=== PATIENT | female | born 1985 | race Caucasian/White ===

== ENCOUNTER 2016-07-16 16:47 | Emergency (ER) | payer BC ==
[2016-07-16 16:53] VITALS: BP 148/100
== END 2016-07-16 18:11 | disposition left against medical advice (07) ==
LOC: ED 16:47
DX: R11.10 Vomiting, unspecified (principal); R19.7 Diarrhea, unspecified; Z53.21 Procedure and treatment not carried out due to patient leaving prior to being seen by health care provider

== ENCOUNTER 2017-01-07 08:04 | Emergency (ER) | payer BC ==
[2017-01-07 08:19] VITALS: BP 104/73
--- NOTE | 2017-01-07 08:46 | UC ---
Dizzy HPI HPI Summary: 2 days of vertigo---did the Eply Maneuver with resolve of vertigo last night-- Today was at work and had on a soft cervical color and got a warm and tingling sensation over body, (felt similar to past panic attack) took off cervical collar laid down and in less than 1 minute she felt better---here now to get checked out - History Of Current Complaint Chief Complaint: UCDizziness Stated Complaint: DIZZY NUMB FEELING IN CHEST/ARMS Time Seen by Provider: 01/07/17 08:19 Hx Obtained From: Patient Hx Last Menstrual Period: 03/08/15 ?: Yes Onset/Duration: Sudden Onset, Resolved Timing: Minutes - breif episode lasted a minute or two Severity Initially: Mild Severity Currently: None Pain Intensity: 0 Character: Room Spinning - for 2 days prior, Lightheaded - this morning episode Aggravating Factor(s): Nothing Alleviating Factor(s): Rest Associated Signs And Symptoms: Positive: Negative - Allergies/Home Medications Allergies/Adverse Reactions: Allergies Allergy/AdvReac Type Severity Reaction Status Date / Time Penicillins [PCN] Allergy Unknown Unknown Verified 07/16/16 16:50 Reaction Details Sulfa Drugs Allergy Unknown Unknown Verified 07/16/16 16:50 Reaction Details Home Medications: Home Medications Docosahexaenoic Acid [Dha Cortez 3] 1 tab PO DAILY 01/07/17 [History Confirmed ] Doxylamine Succinate (Sleep) [Unisom] 1 tab PO BEDTIME 01/07/17 [History Confirmed 01/07/17] PMH/Surg Hx/FS Hx/Imm Hx Previously Healthy: Yes - Surgical History Surgical History: Yes Surgery Procedure, Year, and Place: Tonsilectomy 2013 - Family History Known Family History: Positive: None Family History: denies cardio, respiratory vascular issues in family lineage - Social History Occupation: Employed Full-time - RN Lives: With Family Alcohol Use: None Substance Use Type: None Smoking Status (MU): Never Smoked Tobacco - Immunization History Most Recent Influenza Vaccination: 02/12/15 Most Recent Tetanus Shot: <5 years Review of Systems Constitutional: Negative Skin: Negative Eyes: Negative ENT: Negative Respiratory: Negative Cardiovascular: Negative Gastrointestinal: Negative Genitourinary: Negative Motor: Negative Neurovascular: Negative Musculoskeletal: Negative Neurological: Negative Psychological: Negative All Other Systems Reviewed And Are Negative: Yes Physical Exam Triage Information Reviewed: Yes Appearance: Well-Appearing, No Pain Distress, Well-Nourished Vital Signs: Initial Vital Signs Temp 97.1 F 01/07/17 08:10 Pulse 91 01/07/17 08:10 Resp 16 01/07/17 08:10 BP 104/73 01/07/17 08:10 Pulse Ox 100 01/07/17 08:10 Vital Signs Reviewed: Yes Eye Exam: Normal Eyes: Positive: Conjunctiva Clear, Other: - Perrla, EOMI, no nystagmus, fundascopic exam WNL, ENT Exam: Normal ENT: Positive: Normal ENT inspection, Hearing grossly normal, Pharynx normal, Nasal drainage, TMs normal. Negative: Nasal congestion, Trismus, Muffled/ hoarse voice Dental Exam: Normal Neck exam: Normal Neck: Positive: Supple, Nontender, No Lymphadenopathy Respiratory Exam: Normal Respiratory: Positive: Chest non-tender, Lungs clear, Normal breath sounds, No respiratory distress, No accessory muscle use Cardiovascular Exam: Normal Cardiovascular: Positive: RRR, No Murmur, Pulses Normal, Brisk Capillary Refill Abdomen Description: Positive: Other: - heart tones---140 Musculoskeletal Exam: Normal Musculoskeletal: Positive: Strength Intact, ROM Intact, No Edema Neurological Exam: Normal Neurological: Positive: Alert, Muscle Tone Normal, Other: - gait rhomberg, balence all WNL Psychological Exam: Normal Skin Exam: Normal Diagnostics - Laboratory Diagnostic Studies Completed/Ordered: ua --wnl sg 1.020,,fht 140 - EKG Cardiac Rate: NL Cardiac Rhythm: Sinus: Normal Ectopy: None ST Segment: Normal Dizzy Course/Dx - Course Course Of Treatment: rest increase fluids, follow with trestle mainternance laborer - Differential Dx/Diagnosis Differential Diagnosis/HQI/PQRI: Anxiety, Benign Paroxysmal Positional Vertigo, Hyperventilation, Vasovagal Reaction Provider Diagnoses: Transient vasovagal reaction Discharge - Discharge Plan Condition: Stable Disposition: HOME Patient Education Materials: Vertigo (ED), Syncope (ED) Forms: *Work Release Referrals: Stanislaw Kelley MD [Primary Care Provider] - Additional Instructions: Follow as recommended by your trestle mainternance laborer. Home and Rest today Increase fluids----
== END 2017-01-07 09:05 | disposition home or self-care (01) ==
LOC: UCEAST 08:04
DX: R55 Syncope and collapse (principal); R42 Dizziness and giddiness; Z88.0 Allergy status to penicillin; Z88.2 Allergy status to sulfonamides
CPT/HCPCS: 81003; 93005; 99212; G0463

== ENCOUNTER 2017-02-05 14:39 | Emergency (ER) | payer SELFPAY ==
[2017-02-05 16:17] LABS: Hematocrit 32 % (35-47); Hemoglobin 11.4 g/dl (12.0-16.0); Mean Corpuscular HGB Conc 36 g/dl (31-36); Mean Corpuscular Hemoglobin 32 pg (27-31); Mean Corpuscular Volume 88 fL (80-97); Mean Platelet Volume 8 um3 (7.4-10.4); Red Blood Count 3.63 10^6/ul (4.0-5.4); Red Cell Distribution Width 14 % (10.5-15); White Blood Count 9.3 10^3/ul (3.5-10.8)
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
[2017-02-05 17:05] VITALS: BP 97/63
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
== END 2017-02-05 17:23 | disposition home or self-care (01) ==
LOC: ED 14:39
DX: S39.91XA Unspecified injury of abdomen, initial encounter (principal); R10.30 Lower abdominal pain, unspecified; V43.52XA Car driver injured in collision with other type car in traffic accident, initial encounter; Y93.89 Activity, other specified; Y92.89 Other specified places as the place of occurrence of the external cause
CPT/HCPCS: 36415; 76815; 83030; 85025; 85461; 99282

== ENCOUNTER 2017-03-20 13:49 | Emergency (ER) | payer BC, OTHER ==
--- NOTE | 2017-03-20 14:27 | UC ---
Dizzy HPI HPI Summary: Patient presents with complaints of dizziness, lightheadedness and weakness since 03/13/17. She states that if she moves her head it feels like it is going to just float off. She stats her symptoms are constant, but worse with movement. She also reports nausea. She states she is 25 weeks G1. She is cared for by [facility]. She states she feel very active movement. She denies any f/c/n/v/c/d. Denies any abnormal vaginal discharge or bleeding. She states she has hemorrhoids and has had some rectal bleeding with BM. She states she took meclizine today for the dizziness. She denies any one-sided weakness, headaches or neck pain, injury or trauma. States she was seen by her PCP who told her there was nothing else they could do for her, and spoke to [facility] and they did not offer any additional recommendations or advise. She then went to her chiropractor who adjusted her and she states her symptoms improved for about one hour. - History Of Current Complaint Chief Complaint: UCDizziness Stated Complaint: DIZZINESS/WEAK Time Seen by Provider: 03/20/17 13:58 Hx Obtained From: Patient Hx Last Menstrual Period: 03/08/15 ?: Yes Onset/Duration: Sudden Onset, Lasting Weeks Timing: Hours Severity Initially: Moderate Severity Currently: Moderate Character: Head Spinning, Room Spinning, Lightheaded, Weak, Dizzy Aggravating Factor(s): Change In Head Position Alleviating Factor(s): Lying Down Associated Signs And Symptoms: Positive: Nausea - Risk Factors Cardiac Risk Factors: Negative CVA Risk Factor: Negative - Allergies/Home Medications Allergies/Adverse Reactions: Allergies Allergy/AdvReac Type Severity Reaction Status Date / Time Penicillins [PCN] Allergy Unknown Unknown Verified 02/05/17 15:00 Reaction Details Sulfa Drugs Allergy Unknown Unknown Verified 02/05/17 15:00 Reaction Details Home Medications: Home Medications Meclizine HCl [Meclizine 25] 25 mg PO 03/20/17 [History] Pseudoephedrine-Guaifenesin [Mucinex D 60-600 mg] 1 tab PO 03/20/17 [History] PMH/Surg Hx/FS Hx/Imm Hx Previously Healthy: Yes - Surgical History Surgical History: Yes Surgery Procedure, Year, and Place: Tonsilectomy 2013 - Family History Known Family History: Positive: None Negative: Cardiac Disease, Diabetes Family History: denies cardio, respiratory vascular issues in family lineage - Social History Occupation: Employed Part-time Lives: Alone Alcohol Use: None Substance Use Type: None Smoking Status (MU): Never Smoked Tobacco - Immunization History Most Recent Influenza Vaccination: 02/12/15 Most Recent Tetanus Shot: <5 years Review of Systems Constitutional: Negative Skin: Negative Eyes: Negative ENT: Negative Respiratory: Negative Cardiovascular: Negative Gastrointestinal: Negative Genitourinary: Negative Motor: Negative Neurovascular: Negative Musculoskeletal: Negative Neurological: Other - lightheaded dizziness wekness Psychological: Negative All Other Systems Reviewed And Are Negative: Yes Physical Exam Triage Information Reviewed: Yes Vital Signs: Initial Vital Signs Temp 98.3 F 03/20/17 13:54 Pulse 104 03/20/17 13:54 Resp 18 03/20/17 13:54 BP 125/72 03/20/17 13:54 Pulse Ox 100 03/20/17 13:54 Eye Exam: Normal ENT Exam: Normal Dental Exam: Normal Neck exam: Normal Neck: Positive: 1 Respiratory Exam: Normal Cardiovascular Exam: Normal Abdominal Exam: Normal Musculoskeletal Exam: Normal Neurological Exam: Normal Psychological Exam: Normal Skin Exam: Normal Dizzy Course/Dx - Course Course Of Treatment: Patient was transferred to the ER [facility]. IV was iniated of NS I liter WO. Report was called to [facility]. Patient VS were BP 125/74, P 104, R18, T 98.3, O2 sat 100% at transfer. My concerns of pre- eclampsia, thyroid disease, ms, vertigo were discussed with the patient she was in agreement with the plan. - Differential Dx/Diagnosis Differential Diagnosis/HQI/PQRI: Benign Paroxysmal Positional Vertigo, Other - pre-eclampsia hypo/hyperthyoid ms (undiagnosed) dizziness vertigo Provider Diagnoses: vertigo. ms. hypo/hyperthyroid. pre-eclampsia. dizziness Discharge - Discharge Plan Condition: Stable Disposition: [facility] Patient Education Materials: Dizziness (ED)
[2017-03-20 14:32] VITALS: BP 115/80
[2017-03-20] MEDS ORDERED: NS 0.9% 1000 ML* 1,000 ML IV ONE (14:38)
== END 2017-03-20 14:35 | disposition short-term general hospital (02) ==
LOC: UCEAST 13:49
DX: O14.90 Unspecified pre-eclampsia, unspecified trimester (principal); Z88.0 Allergy status to penicillin; O99.280 Endocrine, nutritional and metabolic diseases complicating pregnancy, unspecified trimester; E03.9 Hypothyroidism, unspecified; E05.90 Thyrotoxicosis, unspecified without thyrotoxic crisis or storm
CPT/HCPCS: 99213; G0463

== ENCOUNTER 2017-03-20 14:55 | Emergency (ER) | payer BC ==
[2017-03-20 15:16] LABS: Hematocrit 35 % (35-47); Hemoglobin 12.2 g/dl (12.0-16.0); Mean Corpuscular HGB Conc 35 g/dl (31-36); Mean Corpuscular Hemoglobin 32 pg (27-31); Mean Corpuscular Volume 90 fL (80-97); Mean Platelet Volume 8 um3 (7.4-10.4); Red Blood Count 3.82 10^6/ul (4.0-5.4); Red Cell Distribution Width 14 % (10.5-15); White Blood Count 10.3 10^3/ul (3.5-10.8)
[2017-03-20 15:32] LABS: Albumin 3.9 g/dL (3.2-5.2); BUN/Creatinine Ratio 20.9 (8-20); Calcium 9.4 mg/dL (8.6-10.3); EGFR African American 218.8 (>60); EGFR Non-African American 170.2 (>60); Magnesium 1.8 mg/dL (1.9-2.7); Total Bilirubin 0.5 mg/dL (0.2-1.0); Total Protein 6.9 g/dL (6.4-8.9)
[2017-03-20 15:33] LABS: Urine Bacteria 1+ (Absent); Urine Bilirubin Negative (Negative); Urine Glucose Negative (Negative); Urine Nitrite Negative (Negative)
[2017-03-20 15:55] LABS: TSH (Thyroid Stimulating Horm) 1.26 mcIU/mL (0.34-5.60)
[2017-03-20 16:21] LABS: Potassium 3.7 mmol/L (3.5-5.0)
[2017-03-20] MEDS ORDERED: NS 0.9% 1000 ML* 1,000 ML IV ONE (16:23)
[2017-03-20] MEDS ORDERED: Meclizine TAB* 12.5 MG PO ONE (16:44)
[2017-03-20 20:54] VITALS: BP 102/82
--- NOTE | 2017-03-21 03:53 | ED ---
Laron Winkler Rebecca, shannaned for Thony Jean-Baptiste on 03/21/17 at 0254 . Progress - Progress Note Progress Note: Pt was signed out from Dr. Blanton, pending disposition, awaiting neurologist consult. Course/Dx - Course Course Of Treatment: Pt was signed out from Dr. Blanton, pending disposition, awaiting neurologist consult. Upon neurologist consultation and evaluation in the ED it has been determined that the pt can be D/C to home. The pts condition is stable and she will be D/C to home with Dx of BPV (benign positional vertigo) with Rx for Zofran and physical therapy and a follow up with her PCP. She understands and agrees. Allergies noted. Elevated BP ntoed and advised to f/u with PCP. - Diagnoses Provider Diagnoses: Benign positional vertigo - Provider Notifications Discussed Care Of Patient With: Lucinda Montez Time Discussed With Above Provider: 22:00 Instructed by Provider To: Other - Upon evaluation in the ED it has been determined that the pt can be D/C to home. The documentation as recorded by the Laron reed Rebecca accurately reflects the service I personally performed and the decisions made by Jerilyn negron Emmanuel.
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
--- NOTE | 2017-03-21 05:13 | CONS ---
ADDENDUM: CONSULTATION REPORT: DATE OF CONSULTATION: MEDICATIONS: Include vitamin p.o. q. day as well as supplements of Probiotic and DHEA p.o. q. day. [id number]/[facility] #: [id number] KYLAH
== END 2017-03-20 20:59 ==
LOC: ED 14:55
DX: O26.892 Other specified pregnancy related conditions, second trimester (principal); H81.10 Benign paroxysmal vertigo, unspecified ear; Z3A.25 25 weeks gestation of pregnancy; Z88.0 Allergy status to penicillin; Z88.2 Allergy status to sulfonamides
CPT/HCPCS: 36415; 80053; 81003; 81015; 83605; 83735; 84443; 84484; 85025; 87086; 93005; 99283

== ENCOUNTER 2017-06-14 12:58 | Emergency (ER) | payer BC ==
[2017-06-14 13:12] VITALS: BP 100/68
--- NOTE | 2017-06-14 14:27 | UC ---
UC General HPI - HPI Summary HPI Summary: 31 yo WF 37week GA c/o left lower rib/pleuritic chest wall pain with deep inspiration felt since last night while sitting in rocking chair. 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 Denies SOB or calf tenderness or recent URI symptoms, f/c. - History of Current Complaint Chief Complaint: UCGeneralIllness Stated Complaint: RIB PAIN Time Seen by Provider: 06/14/17 13:54 Hx Obtained From: Patient Hx Last Menstrual Period: 03/08/15 Onset/Duration: Sudden Onset Onset Severity: Moderate - Allergy/Home Medications Allergies/Adverse Reactions: Allergies Allergy/AdvReac Type Severity Reaction Status Date / Time Penicillins [PCN] Allergy Unknown Unknown Verified 06/14/17 13:12 Reaction Details Sulfa Drugs Allergy Unknown Unknown Verified 06/14/17 13:12 Reaction Details Home Medications: Home Medications Acetaminophen TAB* [Tylenol TAB*] 1,000 mg PO ONCE PRN 06/14/17 [History Confirmed 06/14/17] Diphenhydramine-Acetaminophen [Tylenol Pm Extra Strength 500-25 mg] 1 tab PO BEDTIME PRN 06/14/17 [History Confirmed 06/14/17] PMH/Surg Hx/FS Hx/Imm Hx - Surgical History Surgical History: Yes Surgery Procedure, Year, and Place: Tonsilectomy 2013 - Family History Known Family History: Positive: None Negative: Cardiac Disease, Diabetes, Other - neg: strokes, DVT Family History: denies cardio, respiratory vascular issues in family lineage - Social History Alcohol Use: None Substance Use Type: None Smoking Status (MU): Never Smoked Tobacco - Immunization History Most Recent Influenza Vaccination: 02/12/15 Most Recent Tetanus Shot: <5 years Review of Systems Constitutional: Negative Skin: Negative Eyes: Negative ENT: Negative Respiratory: Negative Cardiovascular: Negative Gastrointestinal: Negative Genitourinary: Negative Motor: Negative Neurovascular: Negative Musculoskeletal: Other: - left lower rib and chestwall pain Neurological: Negative Psychological: Negative All Other Systems Reviewed And Are Negative: Yes - Comments Additional Review of Systems Comments: Pt is 37wks GA Physical Exam Triage Information Reviewed: Yes Appearance: Well-Appearing Vital Signs: Initial Vital Signs Temp 36.5 C 06/14/17 13:07 Pulse 100 06/14/17 13:07 Resp 18 06/14/17 13:07 BP 100/68 06/14/17 13:07 Pulse Ox 99 06/14/17 13:07 Vital Signs Reviewed: Yes Eye Exam: Normal ENT Exam: Normal Dental Exam: Normal Neck exam: Normal Neck: Positive: 1 Respiratory Exam: Normal Respiratory: Positive: Lungs clear, Inspiration - Painful inspiration felt along ICS of left lower rib around rib 7-8 Cardiovascular Exam: Normal Cardiovascular: Positive: RRR Abdominal Exam: Normal Musculoskeletal Exam: Normal Neurological Exam: Normal Psychological Exam: Normal Skin Exam: Normal Course/Dx - Course Course Of Treatment: Left lower pleuritic CP may likely be associated with Gravid 37wk GA Uterus but advised pt to go to ER for to r/o PE. Pt agreed to go to ER from , declined ambulance - Differential Dx - Multi-Symptom Provider Diagnoses: pleuritic chest pain on left lower chest Discharge - Discharge Plan Condition: Stable Disposition: HOME Patient Education Materials: Pleurisy (ED) Referrals: Stanislaw Kelley MD [Primary Care Provider] - Additional Instructions: as as tolerated
== END 2017-06-14 14:30 | disposition home or self-care (01) ==
LOC: UCEAST 12:58
DX: O26.893 Other specified pregnancy related conditions, third trimester (principal); R07.81 Pleurodynia; Z3A.37 37 weeks gestation of pregnancy; Z88.0 Allergy status to penicillin; Z88.2 Allergy status to sulfonamides
CPT/HCPCS: 99211; G0463

== ENCOUNTER 2017-06-14 14:43 | Emergency (ER) | payer BC ==
[2017-06-14 16:32] LABS: ABS Basophils 0.1 10^3/ul (0-0.2); ABS Eosinophils 0.1 10^3/ul (0-0.6); ABS Lymphocytes 1.8 10^3/ul (1.0-4.8); ABS Monocytes 0.7 10^3/ul (0-0.8); ABS Neutrophils 7.5 10^3/ul (1.5-7.7); ABS Nucleated RBC 0.01 10^3/ul; Eosinophil % 0.6 % (0-6); Hematocrit 37 % (35-47); Hemoglobin 12.8 g/dl (12.0-16.0); Lymphocyte % 17.6 % (25-47); Mean Corpuscular HGB Conc 35 g/dl (31-36); Mean Corpuscular Hemoglobin 32 pg (27-31); Mean Corpuscular Volume 93 fL (80-97); Mean Platelet Volume 8 um3 (7.4-10.4); Nucleated Red Blood Cells % 0.1; Platelet Count 205 10^3/ul (150-450); Red Blood Count 3.96 10^6/ul (4.0-5.4); Red Cell Distribution Width 15 % (10.5-15)
[2017-06-14 16:55] LABS: EGFR Non-African American 133.7 (>60)
--- NOTE | 2017-06-14 17:59 | ED ---
Garry Winkler Julia, scribed for Toby Castellano MD on 06/14/17 at 1629 . HPI Chest Pain - HPI Summary HPI Summary: This patient is a 31 year old F presenting to [facility] with a chief complaint of sharp L lower rib pain with inhales since 22:00 last night. The patient rates the pain 6/10 in severity, only with breath. Symptoms aggravated with breathing. Symptoms unchanged by movement or palpation. Patient denies fever, chills, ankle edema, or changes in SOB (related to ). Patient is 37 weeks and reports that the baby is moving normally. - History of Current Complaint Chief Complaint: EDChestWallPain Time Seen by Provider: 06/14/17 15:45 Hx Obtained From: Patient Hx Last Menstrual Period: 03/08/15 Onset/Duration: Started Hours Ago Pain Intensity: 4 Pain Scale Used: 0-10 Numeric Chest Pain Location: Left Lateral - L lower ribs Chest Pain Radiates: No Character: Sharp/Stabbing Aggravating Factor(s): Deep Breaths - Allergy/Home Medications Allergies/Adverse Reactions: Allergies Allergy/AdvReac Type Severity Reaction Status Date / Time Penicillins [PCN] Allergy Unknown Unknown Verified 06/14/17 13:12 Reaction Details Sulfa Drugs Allergy Unknown Unknown Verified 06/14/17 13:12 Reaction Details PMH/Surg Hx/FS Hx/Imm Hx Endocrine/Hematology History: Denies: Hx Diabetes, Hx Thyroid Disease Cardiovascular History: Denies: Hx Hypertension Respiratory History: Denies: Hx Asthma, Hx Chronic Obstructive Pulmonary Disease (COPD) GI History: Denies: Hx Ulcer History: Reports: Other Problems/Disorders - UTI IN PAST NONE RECENTLY Sensory History: Denies: Hx Contacts or Glasses, Hx Hearing Aid Opthamlomology History: Denies: Hx Contacts or Glasses - Surgical History Surgery Procedure, Year, and Place: Tonsilectomy 2014 Hx Anesthesia Reactions: No Infectious Disease History: No Infectious Disease History: Denies: Hx Clostridium Difficile, Hx Hepatitis, Hx Human Immunodeficiency Virus (HIV), Hx of Known/Suspected MRSA, Hx Shingles, Hx Tuberculosis, Hx Known/ Suspected VRE, Hx Known/Suspected VRSA, History Other Infectious Disease, Traveled Outside the US in Last 30 Days - Family History Known Family History: Negative: Cardiac Disease, Diabetes, Other - neg: strokes, DVT Family History: denies cardio, respiratory vascular issues in family lineage - Social History Alcohol Use: None Hx Substance Use: No Substance Use Type: Reports: None Hx Tobacco Use: No Smoking Status (MU): Never Smoked Tobacco Review of Systems Negative: Fever, Chills Positive: Other - L lower rib pain with breaths. Negative: Shortness Of Breath - no recent changes Negative: Edema - ankle All Other Systems Reviewed And Are Negative: Yes Physical Exam - Summary Physical Exam Summary: General: well-appearing, no pain distress Skin: warm, color reflects adequate perfusion, dry Head: normal Eyes: EOMI, MARIELLE ENT: normal Neck: supple, nontender Respiratory: CTA, breath sounds present Cardiovascular: RRR Abdomen: soft, nontender Bowel: present Musculoskeletal: normal, strength/ROM intact, calves nontender Neurological: normal, sensory/motor intact, A&O x3 Psychological: affect/mood appropriate Triage Information Reviewed: Yes Vital Signs On Initial Exam: Initial Vitals Temp Pulse Resp BP Pulse Ox 96.9 F 100 18 118/76 100 06/14/17 14:46 06/14/17 14:46 06/14/17 14:46 06/14/17 14:46 06/14/17 14:46 Vital Signs Reviewed: Yes Diagnostics - Vital Signs Vital Signs Temp Pulse Resp BP Pulse Ox 06/14/17 16:00 132 22 119/84 99 06/14/17 15:30 99 16 119/78 97 06/14/17 15:23 99 22 99 06/14/17 15:21 127/79 06/14/17 14:46 96.9 F 100 18 118/76 100 - Laboratory Lab Results: Lab Results 06/14/17 06/14/17 06/14/17 Range/Units 16:20 16:20 16:20 WBC 10.0 (3.5-10.8) 10^3/ul RBC 3.96 L (4.0-5.4) 10^6/ul Hgb 12.8 (12.0-16.0) g/dl Hct 37 (35-47) % MCV 93 (80-97) fL MCH 32 H (27-31) pg MCHC 35 (31-36) g/dl RDW 15 (10.5-15) % Plt Count 205 (150-450) 10^3/ul MPV 8 (7.4-10.4) um3 Neut % (Auto) 74.6 (38-83) % Lymph % (Auto) 17.6 L (25-47) % [place] % (Auto) 6.6 (1-9) % Eos % (Auto) 0.6 (0-6) % Baso % (Auto) 0.6 (0-2) % Absolute Neuts (auto) 7.5 (1.5-7.7) 10^3/ul Absolute Lymphs (auto) 1.8 (1.0-4.8) 10^3/ul Absolute Monos (auto) 0.7 (0-0.8) 10^3/ul Absolute Eos (auto) 0.1 (0-0.6) 10^3/ul Absolute Basos (auto) 0.1 (0-0.2) 10^3/ul Absolute Nucleated RBC 0.01 10^3/ul Nucleated RBC % 0.1 D-Dimer, Quantitative 666 H (Less Than 230) ng/mL Sodium 133 (133-145) mmol/L Potassium 3.3 L (3.5-5.0) mmol/L Chloride 103 (101-111) mmol/L Carbon Dioxide 22 (22-32) mmol/L Anion Gap 8 (2-11) mmol/L BUN 6 (6-24) mg/dL Creatinine 0.53 (0.51-0.95) mg/dL Est GFR ( Amer) 171.9 (>60) Est GFR (Non-Af Amer) 133.7 (>60) BUN/Creatinine Ratio 11.3 (8-20) Glucose 82 (70-100) mg/dL Calcium 8.9 (8.6-10.3) mg/dL Total Bilirubin 0.50 (0.2-1.0) mg/dL AST 16 (13-39) U/L ALT 8 (7-52) U/L Alkaline Phosphatase 136 H (34-104) U/L Troponin I 0.00 (<0.04) ng/mL C-Reactive Protein 6.82 H (< 5.00) mg/L Total Protein 6.2 L (6.4-8.9) g/dL Albumin 3.4 (3.2-5.2) g/dL Globulin 2.8 (2-4) g/dL Albumin/Globulin Ratio 1.2 (1-3) Result Diagrams: 06/14/17 16:20 06/14/17 16:20 Lab Statement: Any lab studies that have been ordered have been reviewed, and results considered in the medical decision making process. - EKG 16:03 Cardiac Rate: Tachycardia EKG Rhythm: Sinus Tachycardia - at [address] Segment: Normal Ectopy: None Chest Pain Course/Dx - Course Course Of Treatment: DISCUSSED WITH DR PLASCENCIA, OBGYN, AND THE PATIENT. THE DDIMER IS ALMOST ALWAYS ELEVATED IN . O2 SAT NL. DENIES SOB. CYNTHIA REPORTS SHE IS ALWAYS MILDLY TACHY CARDIAC. NO CALF TENDERNESS; SHE FEELS WELL. WE DISCUSSED OBTAINING A CTA; AT THIS TIME NO CTA. IF CYNTHIA'S CONDITION WORSENS OR THERE ARE OTHER CONCERNS, SHE WILL RETURN TO THE EMERGENCY DEPARTMENT. - Diagnoses Provider Diagnoses: Chest pain - Provider Notifications Discussed Care Of Patient With: Singh Plascencia Time Discussed With Above Provider: 17:40 Instructed by Provider To: Other - Patient care was discussed with Dr. Plascencia, [facility], who stated D-Dimer test is typically elevated during . He recommends decision to perform CTA based on clinical suspicion. Discharge - Discharge Plan Condition: Stable Disposition: HOME Patient Education Materials: Chest Pain (ED) Referrals: Stanislaw Kelley MD [Primary Care Provider] - Additional Instructions: FOLLOW UP WITH YOUR DOCTOR. RETURN TO THE EMERGENCY DEPARTMENT FOR ANY WORSENING OF YOUR CONDITION; PAIN, SHORTNESS OF BREATH, YOU FEEL ILL OR QUESTIONS OR CONCERNS. The documentation as recorded by the Garry reed Julia accurately reflects the service I personally performed and the decisions made by me, Toby Castellano MD.
[2017-06-14 18:38] VITALS: BP 118/72
== END 2017-06-14 18:05 | disposition home or self-care (01) ==
LOC: ED 14:43
DX: O26.893 Other specified pregnancy related conditions, third trimester (principal); R07.89 Other chest pain; Z3A.37 37 weeks gestation of pregnancy; Z88.0 Allergy status to penicillin; Z88.2 Allergy status to sulfonamides
CPT/HCPCS: 36415; 80053; 84484; 85025; 85379; 86140; 93005; 99283

== ENCOUNTER 2017-07-05 01:54 | Inpatient (IN) | payer BC ==
[2017-07-04 13:51] LABS: ABS Basophils 0 10^3/ul (0-0.2); ABS Eosinophils 0 10^3/ul (0-0.6); ABS Lymphocytes 1.4 10^3/ul (1.0-4.8); ABS Monocytes 0.5 10^3/ul (0-0.8); ABS Neutrophils 6.1 10^3/ul (1.5-7.7); ABS Nucleated RBC 0 10^3/ul; Eosinophil % 0.3 % (0-6); Hematocrit 38 % (35-47); Hemoglobin 13.1 g/dl (12.0-16.0); Lymphocyte % 17.2 % (25-47); Mean Corpuscular HGB Conc 35 g/dl (31-36); Mean Corpuscular Hemoglobin 32 pg (27-31); Mean Corpuscular Volume 93 fL (80-97); Mean Platelet Volume 8 um3 (7.4-10.4); Nucleated Red Blood Cells % 0.1; Platelet Count 202 10^3/ul (150-450); Red Blood Count 4.05 10^6/ul (4.0-5.4); Red Cell Distribution Width 15 % (10.5-15)
[2017-07-05] MEDS ORDERED: ceFOXitin 2 GM IVPREMIX* 2 GM/50 ML BAG ONE (06:50)
[2017-07-05] MEDS ORDERED: Sodium Citrate/Citric Acid* 15 ML UDC ONE (07:11)
[2017-07-05] MEDS ORDERED: Morphine PF AMP (0.5MG/ML)* 5 MG/10 ML AMP ONE (07:26)
[2017-07-05] MEDS ORDERED: fentaNYL* 50 MCG/ML 2 ML VIAL (100 MCG VIAL) ONE (07:26)
[2017-07-05] MEDS ORDERED: Famotidine IV* 10 MG/ML 2 ML (20 mg) ONE (07:38)
[2017-07-05] MEDS ORDERED: Ondansetron INJ* 2 MG/ML VIAL ONE ×2 (07:38→17:56)
[2017-07-05] MEDS ORDERED: Oxytocin in LR* 20 UNITS/1,000 ML BAG IVPB ONE (07:43)
[2017-07-05] MEDS ORDERED: Famotidine IV* 10 MG/ML 2 ML (20 mg) IV ONE (07:47)
[2017-07-05] MEDS ORDERED: Ondansetron INJ* 2 MG/ML VIAL IV ONE ×2 (07:47→17:55)
[2017-07-05] MEDS ORDERED: Sodium Citrate/Citric Acid* 15 ML UDC PO ONE (07:47)
[2017-07-05] MEDS ORDERED: Buffered Lidocaine 0.9% SYRIN* 5 ML/SYR SYRINGE INTRADERM ONE (07:47)
[2017-07-05] MEDS ORDERED: Naloxone* 0.4 MG/ML 1 ML VIAL IV PRN ×2 (07:48→07:50)
[2017-07-05] MEDS ORDERED: Ondansetron INJ* 2 MG/ML VIAL IV PRN (07:48)
[2017-07-05] MEDS ORDERED: diPHENhydraMINE IV* 50 MG/ML 1 ml VIAL (BENADRYL) IV PRN ×2 (07:48→07:50)
[2017-07-05] MEDS ORDERED: Nalbuphine* 20 MG/ML 1 ML VIAL IV PRN ×2 (07:48→07:50)
[2017-07-05] MEDS ORDERED: HYDROmorphone INJ* 1 MG/ML CARPUJECT SYRINGE IV PRN (07:48)
[2017-07-05] MEDS ORDERED: fentaNYL* 50 MCG/ML 2 ML VIAL (100 MCG VIAL) IV PRN (07:48)
[2017-07-05] MEDS ORDERED: Acetaminophen TAB* 325 MG PO PRN (07:50)
[2017-07-05] MEDS ORDERED: Ketorolac INJ* 30 MG/ML 1 ML VIAL ONE (09:15)
[2017-07-05] MEDS ORDERED: RHO D Immune Globulin (HUMAN)* 300 MCG = 1,500 I.U. INJ IM ONE (09:34)
[2017-07-05] MEDS ORDERED: Witch Hazel PAD* JAR TOPICAL PRN (09:34)
[2017-07-05] MEDS ORDERED: Dibucaine 1% 28.35 GM TUBE PR PRN (09:34)
[2017-07-05] MEDS ORDERED: Glycerin ADULT SUPP PR PRN (09:34)
[2017-07-05] MEDS: Simethicone TAB* 80 MG TAB.CHEW PO SCH ×3 (12:30→20:06)
--- NOTE | 2017-07-05 12:39 | PTEDU ---
Patient Name: CYNTHIA ORLANDO ORLANDOCYNTHIA selected video: Follow Me Mum: The Sethi to Successful to view on 018 at 12:38:05 PM [id number]
[2017-07-05] MEDS: Docusate CAP* 100 MG PO SCH ×2 (14:00→20:06)
[2017-07-05] MEDS: Ketorolac INJ* 30 MG/ML 1 ML VIAL IV SCH ×2 (15:44→21:49)
[2017-07-05] MEDS ORDERED: Scopolamine 1.5 mg* PATCH TRANSDERM ONE (17:55)
[2017-07-05] MEDS ORDERED: Scopolamine 1.5 mg* PATCH ONE (18:15)
[2017-07-06] MEDS ORDERED: oxyCODONE/Acetamin 5/325 MG* TAB PO PRN (00:15)
[2017-07-06] MEDS: oxyCODONE/Acetamin 5/325 MG* TAB PO PRN ×4 (00:45→20:19)
[2017-07-06] MEDS: Ketorolac INJ* 30 MG/ML 1 ML VIAL IV SCH (03:59)
[2017-07-06 07:28] LABS: ABS Basophils 0 10^3/ul (0-0.2); ABS Eosinophils 0.1 10^3/ul (0-0.6); ABS Lymphocytes 0.9 10^3/ul (1.0-4.8); ABS Monocytes 0.6 10^3/ul (0-0.8); ABS Neutrophils 7.9 10^3/ul (1.5-7.7); ABS Nucleated RBC 0 10^3/ul; Eosinophil % 0.6 % (0-6); Hematocrit 29 % (35-47); Hemoglobin 10.3 g/dl (12.0-16.0); Lymphocyte % 9.3 % (25-47); Mean Corpuscular HGB Conc 35 g/dl (31-36); Mean Corpuscular Hemoglobin 33 pg (27-31); Mean Corpuscular Volume 93 fL (80-97); Mean Platelet Volume 8 um3 (7.4-10.4); Nucleated Red Blood Cells % 0; Platelet Count 155 10^3/ul (150-450); Red Blood Count 3.16 10^6/ul (4.0-5.4); Red Cell Distribution Width 14 % (10.5-15); White Blood Count 9.5 10^3/ul (3.5-10.8)
[2017-07-06] MEDS: Docusate CAP* 100 MG PO SCH ×3 (10:05→21:11)
[2017-07-06] MEDS: Ferrous Gluconate TAB* 324 MG TAB PO SCH ×2 (10:06→21:11)
[2017-07-06] MEDS: Ibuprofen TAB* 600 MG PO SCH ×2 (11:45→18:15)
[2017-07-06] MEDS: Simethicone TAB* 80 MG TAB.CHEW PO SCH ×4 (11:46→21:11)
--- NOTE | 2017-07-06 13:02 | OP ---
DATE OF OPERATION: 07/05/17 - ROOM #MCHOB-116 DATE OF : 83 SURGEON: Mariya Salinas MD SEAM CHECKER: Tyler Lundberg CNM ANESTHESIOLOGIST: Dr. Ernst ANESTHESIA: Spinal. PRE-OP DIAGNOSIS: Suspected macrosomia at 40 + 4 weeks gestation. POST-OP DIAGNOSIS: A 40 + 4 weeks gestation with macrosomia. OPERATIVE PROCEDURE: Primary low transverse section. ESTIMATED BLOOD LOSS: 800 cc. URINE OUTPUT: 200 cc. IV FLUIDS: 2000 cc lactated Ringer's. INDICATIONS: This patient is a 31-year-old 1, para 0, who was seen late last week at 40 weeks gestation and an ultrasound performed noted a large for gestational age fetus measuring 10 pounds 6 ounces. We discussed the patient's options and she desired to proceed with a primary section. This was considered reasonable especially as the cervix was closed and the head was not even in the pelvis. She was extensively counseled and consent was signed. FINDINGS: Normal appearing uterus, fallopian tubes, and ovaries. Delivery was productive of a 10 pound 12 ounce female with Apgars of 9 and 9. Time of delivery was 825. COMPLICATIONS: None. DESCRIPTION OF PROCEDURE: The risks, benefits, and alternatives were described to the patient and informed consent was obtained. The patient was taken to the operating room with IV running where spinal anesthesia was induced and found to be adequate. The patient was prepped and draped in the normal sterile fashion in the dorsal supine position with a leftward tilt. A Pfannenstiel skin incision was made with a scalpel and this was carried down to the underlying fascia sharply. The fascia was then scored in the midline with the scalpel. The incision was extended using Covington scissors. The rectus muscles were dissected off the rectus fascia using blunt and sharp dissection. The rectus muscles were in the midline bluntly. The peritoneum was also entered bluntly. A bladder blade was placed. A bladder flap was created sharply using Metzenbaum scissors. A low transverse uterine incision was made with the scalpel. This was carried down to the amniotic cavity which was productive of clear fluid. The incision was extended with blunt traction. The head was elevated to the level of the incision without difficulty and delivered through the incision. With fundal pressure, the shoulders and body delivered without difficulty. The infant had excellent tone and cried immediately on delivery. The cord was doubly clamped and cut. The infant was then handed to the awaiting wrecker driver. Cord blood was collected. The placenta then delivered with manual extraction. The uterus was then exteriorized and cleared of all clots and debris. The uterine incision was reapproximated using 0 Polysorb in a running-locked fashion. A second layer of imbricating sutures of 0 Polysorb was also placed with good hemostasis. The posterior cul-de-sac was copiously irrigated with saline. The uterus was then returned to the abdomen, and the incision was reinspected and noted to be hemostatic. The peritoneum was closed with 3-0 Polysorb in a running fashion. The fascia was closed with 0 Polysorb in a running fashion. The subcutaneous tissues were irrigated and made hemostatic with the Bovie. The skin was then closed with 4-0 Monocryl in a subcuticular stitch. Mastisol and Steri-Strips were placed over the incision which was then covered with a sterile bandage. The patient tolerated the procedure well. Sponge, lap, and needle counts were correct x2. [id number]/[facility] #: [id number] [facility]
[2017-07-07] MEDS: Ibuprofen TAB* 600 MG PO SCH ×5 (00:09→20:48)
[2017-07-07] MEDS: oxyCODONE/Acetamin 5/325 MG* TAB PO PRN (03:40)
[2017-07-07] MEDS: Ferrous Gluconate TAB* 324 MG TAB PO SCH ×2 (08:46→20:47)
[2017-07-07] MEDS: Docusate CAP* 100 MG PO SCH ×3 (08:46→20:47)
[2017-07-07] MEDS: Simethicone TAB* 80 MG TAB.CHEW PO SCH ×4 (08:47→20:48)
[2017-07-07] MEDS ORDERED: Magnesium Hydroxide LIQ* 30 ML UDC PO PRN (13:00)
[2017-07-07] MEDS ORDERED: Magnesium Hydroxide LIQ* 30 ML UDC ONE (13:30)
[2017-07-08] MEDS: Ibuprofen TAB* 600 MG PO SCH ×2 (02:46→08:50)
[2017-07-08] MEDS: Ferrous Gluconate TAB* 324 MG TAB PO SCH (08:50)
[2017-07-08] MEDS: Simethicone TAB* 80 MG TAB.CHEW PO SCH (08:50)
[2017-07-08] MEDS: Docusate CAP* 100 MG PO SCH (08:50)
[2017-07-08 09:05] VITALS: BP 108/78
[2017-07-08] MEDS ORDERED: Scopolamine PATCH Remove* 1 NOTE MISC PATCH OFF ONE (17:55)
== END 2017-07-08 13:24 | disposition home or self-care (01) | DRG 540 ==
LOC: UNDOADMIN 01:54 → MCHOB 01:54
PROVIDERS: ADMIT Obstetrics & Gynecology; ATTEND Obstetrics & Gynecology
PROC: 4A1HX4Z Monitoring of Products of Conception, Cardiac Electrical Activity, External Approach (ICD-10-PCS; 2017-07-05)
PROC: 10D00Z1 Extraction of Products of Conception, Low, Open Approach (ICD-10-PCS; principal; 2017-07-05 07:45)
DX: O36.63X0 Maternal care for excessive fetal growth, third trimester, not applicable or unspecified (principal); O48.0 Post-term pregnancy; Z3A.40 40 weeks gestation of pregnancy; Z37.0 Single live birth; Z88.0 Allergy status to penicillin; Z88.2 Allergy status to sulfonamides; Z88.8 Allergy status to other drugs, medicaments and biological substances; O90.81 Anemia of the puerperium
CPT/HCPCS: 36415; 85025; 85461; 86850; 86900; 86901; A9270-GY; J0694; J1885; J2300; J2405; J2790; J3010

== ENCOUNTER 2017-08-30 08:58 | Emergency (ER) | payer BC ==
[2017-08-30] MEDS ORDERED: Meclizine TAB* 12.5 MG PO ONE (09:31)
[2017-08-30 09:37] LABS: ABS Basophils 0 10^3/ul (0-0.2); ABS Eosinophils 0 10^3/ul (0-0.6); ABS Lymphocytes 1.1 10^3/ul (1.0-4.8); ABS Monocytes 0.3 10^3/ul (0-0.8); ABS Neutrophils 5.2 10^3/ul (1.5-7.7); ABS Nucleated RBC 0 10^3/ul; Eosinophil % 0.3 % (0-6); Hematocrit 40 % (35-47); Hemoglobin 13.9 g/dl (12.0-16.0); Lymphocyte % 17.1 % (25-47); Mean Corpuscular HGB Conc 35 g/dl (31-36); Mean Corpuscular Hemoglobin 31 pg (27-31); Mean Corpuscular Volume 88 fL (80-97); Mean Platelet Volume 8 um3 (7.4-10.4); Nucleated Red Blood Cells % 0; Platelet Count 193 10^3/ul (150-450); Red Blood Count 4.52 10^6/ul (4.0-5.4); Red Cell Distribution Width 13 % (10.5-15); White Blood Count 6.7 10^3/ul (3.5-10.8)
[2017-08-30] MEDS: NS 0.9% 1000 ML* 2,000 ML IV ONE ×2 (09:47→09:48)
[2017-08-30] MEDS ORDERED: Ondansetron INJ* 2 MG/ML VIAL ONE (09:51)
[2017-08-30] MEDS ORDERED: Ondansetron INJ* 2 MG/ML VIAL IV ONE ×2 (09:51→13:09)
[2017-08-30 09:54] LABS: EGFR Non-African American 95.4 (>60)
[2017-08-30 09:54] LABS: Urine Appearance Clear; Urine Blood Negative (Negative); Urine Color Yellow; Urine Ketones Negative (Negative); Urine Protein Negative (Negative); Urine Specific Gravity 1.015 (1.010-1.030); Urine Urobilinogen Negative (Negative)
--- NOTE | 2017-08-30 14:39 | ED ---
Yair Winkler Angela, scribed for Toby Castellano MD on 08/30/17 at 0932 . Dizziness - HPI Summary HPI Summary: This pt is a 31 y/o female presenting to [facility] c/o dizziness since 06:30 this morning. Pt reports today at 06:30 she was changing her baby when she suddenly became dizzy. She describes dizziness as room spinning. Pt additionally reports nystagmus, headache located on right zoroastrianism, unsteady gait secondary to dizziness, nausea. Denies vomiting, LE or UE weakness, numbness or tingling. She states she was in the ED in March 2017 and was evaluated by Dr. Montez, neurologist. Pt notes Dr. Montez did the Zuhair maneuver and had complete relief. Pt reports she has tried Meclizine in the past with no relief. Pt notes she is currently breast feeding her 2 month old baby. - History Of Current Complaint Chief Complaint: EDDizziness Stated Complaint: SYNCOPE Time Seen by Provider: 08/30/17 09:25 Hx Obtained From: Patient Onset/Duration: Suddenly Timing: Hours Severity Currently: Moderate Character: Room Spinning, Dizzy Aggravating Factor(s): Exertion Alleviating Factor(s): Nothing Associated Signs And Symptoms: Positive: Nausea, Unsteady Gait - secondary to dizziness, Other: - headache. Negative: Vomiting, Fever - Allergies/Home Medications Allergies/Adverse Reactions: Allergies Allergy/AdvReac Type Severity Reaction Status Date / Time Sulfa (Sulfonamide Allergy Mild Rash Verified 08/30/17 10:21 Antibiotics) PMH/Surg Hx/FS Hx/Imm Hx Endocrine/Hematology History: Denies: Hx Diabetes, Hx Thyroid Disease Cardiovascular History: Denies: Hx Hypertension Respiratory History: Denies: Hx Asthma, Hx Chronic Obstructive Pulmonary Disease (COPD) GI History: Denies: Hx Ulcer History: Reports: Other Problems/Disorders - UTI IN PAST NONE RECENTLY Sensory History: Denies: Hx Contacts or Glasses, Hx Hearing Aid Opthamlomology History: Denies: Hx Contacts or Glasses Neurological History: Reports: Other Neuro Impairments/Disorders - vertigo - Surgical History Surgery Procedure, Year, and Place: Tonsilectomy 2014 Hx Anesthesia Reactions: No Infectious Disease History: No Infectious Disease History: Denies: Hx Clostridium Difficile, Hx Hepatitis, Hx Human Immunodeficiency Virus (HIV), Hx of Known/Suspected MRSA, Hx Shingles, Hx Tuberculosis, Hx Known/ Suspected VRE, Hx Known/Suspected VRSA, History Other Infectious Disease, Traveled Outside the [place] in Last 30 Days - Family History Known Family History: Negative: Cardiac Disease, Diabetes, Other - neg: strokes, DVT Family History: denies cardio, respiratory vascular issues in family lineage - Social History Alcohol Use: None Hx Substance Use: No Substance Use Type: Reports: None Hx Tobacco Use: No Smoking Status (MU): Never Smoked Tobacco Review of Systems Negative: Fever Eyes: Other - nystagmus Positive: Nausea. Negative: Vomiting Neurological: Other - POS: dizziness, nystgamus, unsteady gait 2/2 dizziness Positive: Headache. Negative: Weakness, Paresthesia, Numbness, Syncope All Other Systems Reviewed And Are Negative: Yes Physical Exam - Summary Physical Exam Summary: General: mildly ill-appearing, no pain distress Skin: warm, color reflects adequate perfusion, dry Head: normal Eyes: EOMI, MARIELLE. Nystagmus. ENT: normal Neck: supple, nontender Respiratory: CTA, breath sounds present Cardiovascular: RRR Abdomen: soft, nontender Bowel: present Musculoskeletal: normal, strength/ROM intact Neurological: normal, sensory/motor intact, A&O x3 Psychological: affect/mood appropriate Triage Information Reviewed: Yes Vital Signs On Initial Exam: Initial Vitals Temp Pulse Resp BP Pulse Ox 96.8 F 87 20 112/68 100 08/30/17 09:00 08/30/17 09:00 08/30/17 09:00 08/30/17 09:00 08/30/17 09:00 Vital Signs Reviewed: Yes Diagnostics - Vital Signs Vital Signs Temp Pulse Resp BP Pulse Ox 08/30/17 09:00 96.8 F 87 20 112/68 100 - Laboratory Lab Results: Lab Results 08/30/17 08/30/17 08/30/17 Range/Units 09:23 09:23 09:23 WBC 6.7 (3.5-10.8) 10^3/ul RBC 4.52 (4.0-5.4) 10^6/ul Hgb 13.9 (12.0-16.0) g/dl Hct 40 (35-47) % MCV 88 (80-97) fL MCH 31 (27-31) pg MCHC 35 (31-36) g/dl RDW 13 (10.5-15) % Plt Count 193 (150-450) 10^3/ul MPV 8 (7.4-10.4) um3 Neut % (Auto) 78.3 (38-83) % Lymph % (Auto) 17.1 L (25-47) % [place] % (Auto) 4.0 (0-7) % Eos % (Auto) 0.3 (0-6) % Baso % (Auto) 0.3 (0-2) % Absolute Neuts (auto) 5.2 (1.5-7.7) 10^3/ul Absolute Lymphs (auto) 1.1 (1.0-4.8) 10^3/ul Absolute Monos (auto) 0.3 (0-0.8) 10^3/ul Absolute Eos (auto) 0 (0-0.6) 10^3/ul Absolute Basos (auto) 0 (0-0.2) 10^3/ul Absolute Nucleated RBC 0 10^3/ul Nucleated RBC % 0 Sodium 138 (133-145) mmol/L Potassium 3.4 L (3.5-5.0) mmol/L Chloride 106 (101-111) mmol/L Carbon Dioxide 25 (22-32) mmol/L Anion Gap 7 (2-11) mmol/L BUN 10 (6-24) mg/dL Creatinine 0.71 (0.51-0.95) mg/dL Est GFR ( Amer) 122.7 (>60) Est GFR (Non-Af Amer) 95.4 (>60) BUN/Creatinine Ratio 14.1 (8-20) Glucose 119 H (70-100) mg/dL Lactic Acid 3.2 H* (0.5-2.0) mmol/L Calcium 9.9 (8.6-10.3) mg/dL Magnesium 1.8 L (1.9-2.7) mg/dL Total Bilirubin 0.40 (0.2-1.0) mg/dL AST 16 (13-39) U/L ALT 14 (7-52) U/L Alkaline Phosphatase 96 (34-104) U/L Troponin I 0.00 (<0.04) ng/mL Total Protein 7.0 (6.4-8.9) g/dL Albumin 4.4 (3.2-5.2) g/dL Globulin 2.6 (2-4) g/dL Albumin/Globulin Ratio 1.7 (1-3) TSH 0.95 (0.34-5.60) mcIU/mL Urine Color Urine Appearance Urine pH (5-9) Ur Specific [place] (1.010-1.030) Urine Protein (Negative) Urine Ketones (Negative) Urine Blood (Negative) Urine Nitrate (Negative) Urine Bilirubin (Negative) Urine Urobilinogen (Negative) Ur Leukocyte Esterase (Negative) Urine Glucose (Negative) Urine Ascorbic Acid (Negative) 08/30/17 Range/Units 09:45 WBC (3.5-10.8) 10^3/ul RBC (4.0-5.4) 10^6/ul Hgb (12.0-16.0) g/dl Hct (35-47) % MCV (80-97) fL MCH (27-31) pg MCHC (31-36) g/dl RDW (10.5-15) % Plt Count (150-450) 10^3/ul MPV (7.4-10.4) um3 Neut % (Auto) (38-83) % Lymph % (Auto) (25-47) % [place] % (Auto) (0-7) % Eos % (Auto) (0-6) % Baso % (Auto) (0-2) % Absolute Neuts (auto) (1.5-7.7) 10^3/ul Absolute Lymphs (auto) (1.0-4.8) 10^3/ul Absolute Monos (auto) (0-0.8) 10^3/ul Absolute Eos (auto) (0-0.6) 10^3/ul Absolute Basos (auto) (0-0.2) 10^3/ul Absolute Nucleated RBC 10^3/ul Nucleated RBC % Sodium (133-145) mmol/L Potassium (3.5-5.0) mmol/L Chloride (101-111) mmol/L Carbon Dioxide (22-32) mmol/L Anion Gap (2-11) mmol/L BUN (6-24) mg/dL Creatinine (0.51-0.95) mg/dL Est GFR ( Amer) (>60) Est GFR (Non-Af Amer) (>60) BUN/Creatinine Ratio (8-20) Glucose (70-100) mg/dL Lactic Acid (0.5-2.0) mmol/L Calcium (8.6-10.3) mg/dL Magnesium (1.9-2.7) mg/dL Total Bilirubin (0.2-1.0) mg/dL AST (13-39) U/L ALT (7-52) U/L Alkaline Phosphatase (34-104) U/L Troponin I (<0.04) ng/mL Total Protein (6.4-8.9) g/dL Albumin (3.2-5.2) g/dL Globulin (2-4) g/dL Albumin/Globulin Ratio (1-3) TSH (0.34-5.60) mcIU/mL Urine Color Yellow Urine Appearance Clear Urine pH 5.0 (5-9) Ur Specific [place] 1.015 (1.010-1.030) Urine Protein Negative (Negative) Urine Ketones Negative (Negative) Urine Blood Negative (Negative) Urine Nitrate Negative (Negative) Urine Bilirubin Negative (Negative) Urine Urobilinogen Negative (Negative) Ur Leukocyte Esterase Negative (Negative) Urine Glucose Negative (Negative) Urine Ascorbic Acid * A (Negative) Result Diagrams: 08/30/17 09:23 08/30/17 09:23 Lab Statement: Any lab studies that have been ordered have been reviewed, and results considered in the medical decision making process. - EKG 09:14 Cardiac Rate: NL EKG Rhythm: Sinus Rhythm - at [address] Segment: Normal Ectopy: None Re-Evaluation - Re-Evaluation First Eval Re-Evaluation Time: 12:45 Comment: Dr. Blanton in to try the Zuhair maneuver. Second Eval Re-Evaluation Time: 13:06 Change: Unchanged Comment: No significant improvement after Zuhair maneuver. Third Eval Re-Evaluation Time: 14:16 Comment: I reviewed the lab results with the pt and Dr. Gonzalez's recommendation. Dizzy Course/Dx - Course Course Of Treatment: Medications reviewed. Allergies noted. Dr. Blanton tried the Zuhair maneuver with no significant improvement. I discussed pt care with Dr. Gonzalez, neurologist. DISCUSSED WITH NEUROLOGY, DR GONZALEZ. DUE TO PRIOR EPISODIC EVENTS OF THE SAME, NO NEED FOR IMAGING TODAY. RX MECLIZINE AND ZOFRAN. F/U PMD AND ENT; RETURN IF WORSE. - Diagnoses Provider Diagnoses: Vertigo - Provider Notifications Discussed Care Of Patient With: Valdez Gonzalez Time Discussed With Above Provider: 13:44 Instructed by Provider To: Other - I discussed pt care with Dr. Gonzalez, neurologist. Discharge - Discharge Plan Condition: Stable Disposition: HOME Prescriptions: Meclizine HCl [Motion Sickness Relief] 25 mg PO Q6H PRN #15 tablet PRN Reason: Dizziness Ondansetron ODT TAB* [Zofran 4 MG Odt TAB*] 4 mg PO Q6H PRN #15 tab.odt PRN Reason: Nausea Patient Education Materials: Vertigo (ED) Referrals: [facility] [Provider Group] Arsenio Barber MD [Medical Doctor] - Stanislaw Kelley MD [Primary Care Provider] - Lucinda Montez MD [Medical Doctor] - Additional Instructions: FOLLOW UP WITH YOUR PRIMARY CARE DOCTOR AND ENT. RETURN TO THE EMERGENCY DEPARTMENT FOR ANY WORSENING OF YOUR CONDITION OR QUESTIONS OR CONCERNS. The documentation as recorded by the Yair reed Angela accurately reflects the service I personally performed and the decisions made by me, Toby Castellano MD.
[2017-08-30 16:13] VITALS: BP 113/73
== END 2017-08-30 16:08 | disposition home or self-care (01) ==
LOC: ED 08:58
DX: R42 Dizziness and giddiness (principal); R51 Headache; R11.10 Vomiting, unspecified
CPT/HCPCS: 36415; 80053; 81003; 83605; 83735; 84443; 84484; 85025; 93005; 96374; 96375; 99284; A9270-GY; J2405

== ENCOUNTER 2018-04-26 12:33 | Emergency (ER) | payer BC, OTHER ==
--- OUTSIDE RECORDS SUMMARY | 2018-04-26 12:40 | XMS REPORT ---
:1985 External Reference #:[id number] Author Organization [facility] Address [address] [place] [address] Phone [phone] Care Team Providers Name Role Phone Stanislaw Kelley MD Care Team Information Assistant At Surgery Unavailable Stanislaw Kelley MD Primary Care Physician Unavailable Payers Type Date Identification Numbers Payment Provider Subscriber Commercial Effective: Policy Number: Nel Márquez 2012 [id number] Group Name: Lawanda Villasenor o [facility] [place] [address] [address] PayID: [id number] [place] [address] Problems Date Description Provider Status Onset: 03/14/2011 Anxiety state Stanislaw Kelley M.D. Active Onset: 01/13/2012 Venereal disease screening Lula Sidhu M.D. 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[employer] Cigarette Use Nonsmoker ETOH Use Social Alcohol Smoking Patient has never smoked Daily Caffeine Consumes on average 1 cup of coffee per day Exercise Type/Frequency Current Exercises regularly Sun Exposure Minimum amount of sun exposure Allergies, Adverse Reactions, Alerts Date Description Reaction Status Severity Comments 04/22/2018 NKDA active Medications Medication Date Status Form Strength Qnty SIG Indications Ordering Provider Pro Refresh Pro 00/00 Active Unknown Biotic /0000 Multivitamin Active Tablets 1 by Unknown Adult /0000 mouth every day Note 03/15 Hx pt was seen here Fox, - today, Afnp-C 03/19 off work through 03/18/17, will return 03/24/17 Carafate 10/09 Hx Suspension 1GM/10ML 600un take two K21.0 Essence its teaspoonf Gege, - uls [employer] COMMISSIONER 03/14 (10ml) by mouth prior to meals Pantoprazole 10/[address] 20mg 90tab 1 by K21.0 Essence Sodium s mouth Gege, - daily on [employer] COMMISSIONER 03/14 an empty stomach Ranitidine HCL 10/09 Hx Tablets 150mg 90tab 1 po K21.0 Essence /2017 s daily Gege, - [employer] COMMISSIONER 03/14 Nitrofurantoin 01/05 Hx Capsules 100mg 14cap 1 by N39.0 Mimi Monohyd Macro /2015 s mouth Tavon [employer] - twice a 01/12 day seven days Phenazopyridine 09/19 Hx Tablets 200mg 45tab 1 by N39.0 Essence HCL /2015 s mouth Gege, - twice [employer] COMM[employer] 03/16 daily needed for urinary pain Nitrofurantoin 09/19 Hx Capsules 100mg 10cap 1 by N39.0 Essence Macrocrystal /2015 s mouth Gege, - twice a [employer] COMM[employer]ER 01/04 day x days Nitrofurantoin 05/28 Hx Capsules 100mg 14cap 1 by N39.0 Betsy Monohyd Macro s mouth Re, - twice a Afnp-C 06/04 day x days Tobradex 05/30 Hx Suspension 0.3-0.1% 1bott instill 2 372.39 le gtts left Gege, - eye qid x [employer] COMMISSIONER 05/28 3 No Active 12/08 Hx Unknown Medications /2013 - 12/08 Ortho Tri-Cyclen 12/08 Hx Tablets 0.18/0.21 28tab Take 1 V25.01 Mimi Lo 5/0.25 s Tablet By SRI Montes De Oca - mg-25 mcg Mouth One 05/28 Time Daily No Active 11/16 Hx Unknown Medications /2013 - 11/16 Fluconazole 11/16 Hx Tablets 150mg 1tabs 1 po x 1 616.10 Mimi SRI Montes De Oca - 11/17 Terazol 7 11/16 Hx Cream 0.4% 45gm insert 616.10 applicato SRI Montes De Oca - r in 12/08 vagina at end of menstrual cycle monthly Diflucan 07/08 Hx Tablets 150mg 3tabs 1 po qd x 112.1 Ashlee 3 days Vandana, - [employer] COMMISSIONER 11/16 Azithromycin 10/28 Hx Tablets 250mg 12tab take 2 466.0 Ashlee s tablets Vandana, - by mouth [employer] COMMISSIONER 12/08 x 3d take 1 tablet daily for next 6 days Robitussin A-C 10/28 Hx 4Oz 1-2 tsp 466.0 Ashlee po q4h Vandana, - prn cough [employer] COMMISSIONER 12/08 Diflucan 09/25 Hx Tablets 150mg 3tabs 1 po qd x Aby 3 days Hilsdorf, - Afnp-C 12/19 Triamcinalone 02/10 Hx 0.1% 50uni apply 780.8 Mimi L. Acet ts thin Torri, - layer to M.D. 09/25 bid-tid Alprazolam 10/03 Hx Tablets 0.25mg 90tab 1 po q 4 300.00 Mimi L. s hours as Torri, - needed M.D. 01/24 anxiety Terbinafine HCL 10/03 Hx Tablets 250mg 28tab 2 po 110.1 Mimi L. s daily Torri, - first M.D. 12/18 week every month x 2 months. Penlac Nail 04/03 Hx Solution 8% 6.6ml apply to 681.02 Betsy Lacquer nail q hs Re, - x 1 wk; Afnp-C 12/18 remove w/ alcohol and trim nail Ortho-Tricyclen 12/13 Hx use as [facility] 09/25 [facility] Diflucan 12/13 Hx Tablets 100mg 30tab 1 po qd 7 616.10 s days; october Re, - repeat in Afnp-C 12/18 one week and prn Zithromax 03/25 Hx Tablets 250mg 6Tabs 2 po qd 786.2 today , Vandana, - then 1 po [employer] COMMISSIONER 12/13 qd 4 Diflucan 08/23 Hx Tablets 100mg 15tab 2 po 616.10 s today Re, - then 1 qd Afnp-C 03/25 Terazol 7 08/23 Hx Cream 0.4% 45gm 1 616.10 applicato Re, - rfull Afnp-C 03/25 intrav yee q hs x 7 nights Orthotricyclen 06/30 Hx 1unit as s directed Vandana, - [employer] COMMISSIONER 06/16 Cipro 12/14 Hx Tabs 500mg 14tab 1 po bid s Vandana, - [employer] COMMISSIONER 06/27 Zithromax 05/22 Hx 250mg 6unit 2 Tabs s Day 1 richard, - Afnp-C 05/27 1 Tab qd Days 2 Thru 5 Robitussin ac 05/22 Hx 4Oz 1-2 tsp po q4h Fox, - prn Afnp-C 06/01 Naprosyn 12/23 Hx Tabs 375mg 60tab 1 bid Jerzy AMikaela s With Food Dardavid, - M.D. 07/18 Note 12/23 Hx Camp PT Is Jerzy A. Able To Darlow, - Carry Her M.D. 07/18 Napros 375MG One bid prn To Sushil Note 12/20 Hx Fox, - Afnp-C 12/23 Mycolog-II 10/21 Hx Cream 30gm Apply bid To Re, - Affected Afnp-C 07/18 Naproxen 07/25 Hx 375mg Tab 40uni One tid David Ashby ts prn Hip Blumkin, - Pain M.D. 08/24 Drysol Dabomatic 09/22 Hx 35ml Apply @ Vargas Silva /2000 H.S. To Baoalayna, - Dry Skin M.D. 06/27 And Off In A.M. 1-2X/WK prn Naprosyn 07/01 Hx 375mg 30uni 1 PO bid Jerzy ts With Food Darlow, - M.D. 07/15 Knee Brace 07/01 Hx One Patellar Stabilizi Dardavid, - ng Brace M.D. 07/02 To Worn When Active For Up To 2-4 Weeks Patanol Eye gtts 07/01 Hx 5cc 1-2 gtts bid OD Darlow, - prn M.D. 07/08 Itching/ urning Premarin Hx Cream 0.625mg/G 1 gm pv Unknown /0000 M daily for - a week 11/16 then weekly Hx Tablets Unknown /0000 - 04/15 Vitamin D Hx Tablets 1000Unit 1 by Unknown /0000 mouth - every 03/16 other Vitamin D High Hx Capsules 1000Unit 2 daily. Unknown Potency /0000 - 03/14 Co Q 10 Hx Capsules 100mg 2 by Unknown /0000 mouth - every day 03/14 Aspirin Adult Hx Tablets DR 81mg 1 by Unknown Low Strength /0000 mouth - every day 03/14 Glucosamine Hx Tablets 1 po qd Unknown Chondroitin /0000 Advanced - 10/26 Dha Hx Capsules 200mg Unknown /0000 - 04/15 Tylenol Hx Tablets 325mg 1 by Unknown /0000 mouth - every 4 04/15 hours needed pain Tylenol PM Extra Hx Tablets 500-25mg prn Unknown Strength /0000 - 04/15 Medications Administered in Office Medication Date Status Form Strength Qnty SIG Indications Ordering Provider TB Intradermal Administered Injection Aby Test 012 Diann Braxton TB Intradermal Administered Injection Stanislaw Neil Test 011 Thelma Kelley TB Intradermal Administered Injection Betsy Test 011 Diann Grimaldo TB Intradermal Administered Injection Stanislaw Neil Test 003 Thelma Kelley Immunizations CPT Code Status Date Vaccine Lot # [id number] Given 12/18/2010 Meningococcal Conjugate Vaccine,Serogroups For [id number] Intramuscular Use 94722 Given 12/18/2010 Tdap Tetanus, W Pertussis [id number] Given 07/18/2002 Meningococcal Polysaccharide Vaccing - Intramuscular Vital Signs Date Vital Result Comment 04/22/2018 BP Systolic 114 mmHg BP Diastolic 60 mmHg Heart Rate 78 /min Body Temperature 97.7 F Respiratory Rate 16 /min Height 68 inches 5'8" measured 04/22/18 Weight 168.50 lb BMI (Body Mass Index) 25.6 kg/m2 Right Visual Acuity Distance 20/20 Left Visual Acuity Distance 20/20 03/15/2017 BP Systolic 128 mmHg BP Diastolic 70 mmHg Heart Rate 84 /min Body Temperature 97.9 F Height 67 inches 5'7" 10/26/2016 BP Systolic 100 mmHg BP Diastolic 78 mmHg Heart Rate 68 /min Body Temperature 97.9 F Respiratory Rate 18 /min Height 67 inches 5'7" Weight 158.00 lb BMI (Body Mass Index) 24.7 kg/m2 10/09/2016 BP Systolic 100 mmHg BP Diastolic 60 mmHg Heart Rate 90 /min Body Temperature 98.1 F Height 67 inches 5'7" Weight 158.00 lb BMI (Body Mass Index) 24.7 kg/m2 03/16/2016 BP Systolic 90 mmHg BP Diastolic 60 mmHg Heart Rate 76 /min Body Temperature 97.9 F Respiratory Rate 15 /min Height 67 inches 5'7" Weight 154.00 lb BMI (Body Mass Index) 24.1 kg/m2 01/06/2016 BP Systolic 92 mmHg BP Diastolic 62 mmHg Heart Rate 84 /min Body Temperature 98.0 F Height 67 inches 5'7" Weight 151.50 lb BMI (Body Mass Index) 23.7 kg/m2 09/23/2015 BP Systolic 118 mmHg BP Diastolic 74 mmHg Heart Rate 12 /min Body Temperature 97.7 F Respiratory Rate 68 /min Height 67 inches 5'7" Weight 158.00 lb BMI (Body Mass Index) 24.7 kg/m2 09/20/2015 BP Systolic 110 mmHg BP Diastolic 64 mmHg Heart Rate 80 /min Body Temperature 97.9 F Respiratory Rate 16 /min Height 67 inches 5'7" Weight 150.00 lb BMI (Body Mass Index) 23.5 kg/m2 05/28/2015 BP Systolic 100 mmHg BP Diastolic 50 mmHg Heart Rate 84 /min Body Temperature 98.4 F Respiratory Rate 16 /min Height 67 inches 5'7" Weight 151.00 lb BMI (Body Mass Index) 23.6 kg/m2 05/30/2014 BP Systolic 90 mmHg BP Diastolic 64 mmHg Heart Rate 78 /min Body Temperature 96.7 F Respiratory Rate 16 /min Height 67 inches 5'7" Weight 137.12 lb BMI (Body Mass Index) 21.5 kg/m2 12/08/2013 BP Systolic 100 mmHg BP Diastolic 60 mmHg Heart Rate 72 /min Body Temperature 97.0 F Respiratory Rate 16 /min Height 67 inches 5'7" Weight 138.00 lb BMI (Body Mass Index) 21.6 kg/m2 11/23/2013 BP Systolic 100 mmHg BP Diastolic 70 mmHg Heart Rate 78 /min Body Temperature 97.7 F Respiratory Rate 15 /min Height 67 inches 5'7" Weight 138.00 lb BMI (Body Mass Index) 21.6 kg/m2 11/16/2013 BP Systolic 90 mmHg BP Diastolic 62 mmHg Heart Rate 80 /min Body Temperature 97.1 F Respiratory Rate 18 /min Height 67 inches 5'7" Weight 137.00 lb BMI (Body Mass Index) 21.5 kg/m2 07/08/2013 BP Systolic 80 mmHg BP Diastolic 60 mmHg Heart Rate 100 /min Body Temperature 98.8 F Respiratory Rate 18 /min Height 67 inches 5'7" Weight 138.38 lb BMI (Body Mass Index) 21.7 kg/m2 01/24/2013 BP Systolic 110 mmHg BP Diastolic 70 mmHg Heart Rate 80 /min Body Temperature 98.9 F Respiratory Rate 16 /min Height 67 inches 5'7" Weight 138.00 lb BMI (Body Mass Index) 21.6 kg/m2 01/19/2012 BP Systolic 90 mmHg BP Diastolic 60 mmHg Heart Rate 68 /min Body Temperature 98.4 F Height 67 inches 5'7" Weight 132.00 lb BMI (Body Mass Index) 20.7 kg/m2 01/13/2012 BP Systolic 100 mmHg BP Diastolic 70 mmHg Heart Rate 68 /min Body Temperature 97.7 F Height 67 inches 5'7" Weight 130.00 lb BMI (Body Mass Index) 20.4 kg/m2 12/23/2011 BP Systolic 108 mmHg BP Diastolic 60 mmHg Heart Rate 78 /min Body Temperature 98.9 F Height 67 inches 5'7" Weight 130.00 lb BMI (Body Mass Index) 20.4 kg/m2 12/09/2011 BP Systolic 106 mmHg BP Diastolic 70 mmHg Heart Rate 78 /min Body Temperature 98.9 F Height 67 inches 5'7" Weight 130.00 lb BMI (Body Mass Index) 20.4 kg/m2 10/29/2011 BP Systolic 110 mmHg BP Diastolic 78 mmHg Heart Rate 88 /min Body Temperature 98.3 F Height 67 inches 5'7" Weight 138.00 lb BMI (Body Mass Index) 21.6 kg/m2 09/26/2011 BP Systolic 100 mmHg BP Diastolic 68 mmHg Heart Rate 78 /min Body Temperature 98.2 F Height 67 inches 5'7" Weight 129.00 lb BMI (Body Mass Index) 20.2 kg/m2 02/10/2011 BP Systolic 90 mmHg BP Diastolic 58 mmHg Heart Rate 62 /min Body Temperature 97.4 F Respiratory Rate 18 /min Height 67 inches 5'7" Weight 135.00 lb BMI (Body Mass Index) 21.1 kg/m2 01/14/2011 BP Systolic 84 mmHg BP Diastolic 60 mmHg Heart Rate 72 /min Height 67 inches 5'7" Weight 135.00 lb BMI (Body Mass Index) 21.1 kg/m2 12/18/2010 BP Systolic 110 mmHg BP Diastolic 72 mmHg Heart Rate 76 /min Body Temperature 97.6 F Height 67 inches 5'7" Weight 135.00 lb BMI (Body Mass Index) 21.1 kg/m2 Right Visual Acuity Distance 20/20 Left Visual Acuity Distance 20/20 10/03/2010 BP Systolic 96 mmHg BP Diastolic 60 mmHg Heart Rate 66 /min Body Temperature 97.7 F Respiratory Rate 20 /min Height 67 inches 5'7" Weight 137.00 lb BMI (Body Mass Index) 21.5 kg/m2 04/03/2010 BP Systolic 100 mmHg BP Diastolic 80 mmHg Heart Rate 76 /min Body Temperature 98.1 F Height 67 inches 5'7" Weight 135.00 lb BMI (Body Mass Index) 21.1 kg/m2 12/13/2009 BP Systolic 108 mmHg BP Diastolic 68 mmHg Heart Rate 60 /min Body Temperature 98.4 F Height 67 inches 5'7" Weight 133.00 lb BMI (Body Mass Index) 20.8 kg/m2 04/01/2009 BP Systolic 90 mmHg BP Diastolic 60 mmHg Heart Rate 80 /min Body Temperature 98.2 F Weight 133.00 lb 03/25/2009 BP Systolic 100 mmHg BP Diastolic 52 mmHg Heart Rate 104 /min Body Temperature 99.6 F Height 67 inches 5'7" Weight 136.00 lb BMI (Body Mass Index) 21.3 kg/m2 08/24/2007 BP Systolic 108 mmHg BP Diastolic 70 mmHg Heart Rate 88 /min Body Temperature 98.5 F Weight 131.00 lb 06/30/2004 BP Systolic 92 mmHg BP Diastolic 60 mmHg Heart Rate 68 /min Weight 127.00 lb 06/27/2004 BP Systolic 102 mmHg BP Diastolic 66 mmHg Heart Rate 74 /min Weight 124.00 lb 12/15/2003 BP Systolic 100 mmHg BP Diastolic 62 mmHg Heart Rate 70 /min Body Temperature 98.6 F Weight 128.00 lb 05/22/2003 BP Systolic 102 mmHg BP Diastolic 60 mmHg Body Temperature 99.7 F Weight 124.00 lb Weight Percentile 47th 07/18/2002 BP Systolic 100 mmHg BP Diastolic 62 mmHg Heart Rate 80 /min Height 67 inches 5'7" Weight 134.00 lb BMI (Body Mass Index) 21.0 kg/m2 Weight Percentile 70th Height Percentile 86 % 12/20/2001 BP Systolic 100 mmHg BP Diastolic 70 mmHg Heart Rate 68 /min Height 66.75 inches 5'6.75" Weight 117.00 lb BMI (Body Mass Index) 18.9 kg/m2 Weight Percentile 40th Height Percentile 84 % 10/04/2001 BP Systolic 102 mmHg BP Diastolic 60 mmHg Body Temperature 99.5 F Weight 130.00 lb Weight Percentile 67th 07/25/2001 Weight 131.00 lb Weight Percentile 43rd 08/24/2000 BP Systolic 102 mmHg BP Diastolic 56 mmHg Heart Rate 68 /min Height 66 inches 5'6" Weight 127.00 lb BMI (Body Mass Index) 20.5 kg/m2 Head Percentile 5 % Height Percentile 43 % Right Visual Acuity Distance 20/20 Left Visual Acuity Distance 20/20 07/14/2000 BP Systolic 110 mmHg BP Diastolic 80 mmHg Weight 128.00 lb 07/01/2000 BP Systolic 106 mmHg BP Diastolic 60 mmHg Body Temperature 97.8 F Height 66.5 inches 5'6.50" Weight 126.00 lb BMI (Body Mass Index) 20.3 kg/m2 Height Percentile 49 % Results Test Date Test Result H/L Range Note Laboratory test 04/22/2018 TSH <pending> 0.5-5.0 finding Laboratory test 04/22/2018 Antinuclear Antibodies, <pending> finding Ifa Laboratory test 04/22/2018 Sedimentation Rate <pending> finding Laboratory test 08/30/2017 Lactic Acid 3.2 mmol/L High 0.5-2.0 1 finding Laboratory test 03/20/2017 Magnesium 1.8 mg/dL Low 1.9-2.7 finding Troponin I 0.00 ng/mL <0.04 TSH (Thyroid Stim Horm) 1.26 mcIU/mL 0.34-5.60 Comp Metabolic Panel 03/20/2017 Sodium 134 mmol/L 133-145 Chloride 102 mmol/L 101-111 Co2 Carbon Dioxide 24 mmol/L 22-32 Glucose 113 mg/dL High 70-100 Blood Urea Nitrogen 9 mg/dL 6-24 Creatinine 0.43 mg/dL Low 0.51-0.95 BUN/Creatinine Ratio 20.9 High 8-20 Calcium 9.4 mg/dL 8.6-10.3 Total Protein 6.9 g/dL 6.4-8.9 Albumin 3.9 g/dL 3.2-5.2 Globulin 3.0 g/dL 2-4 Albumin/Globulin Ratio 1.3 1-3 Total Bilirubin 0.50 mg/dL 0.2-1.0 Alkaline Phosphatase 64 U/L 34-104 Alt 10 U/L 7-52 Egfr Non- 170.2 >60 Egfr 218.8 >60 2 Potassium 3.7 mmol/L 3.5-5.0 Anion Gap 8 mmol/L 2-11 Ast 18 U/L 13-39 CBC Auto Diff 03/20/2017 White Blood Count 10.3 10^3/uL 3.5-10.8 Red Blood Count 3.82 10^6/uL Low 4.0-5.4 Hemoglobin 12.2 g/dL 12.0-16.0 Hematocrit 35 % 35-47 Mean Corpuscular Volume 90 fL 80-97 Mean Corpuscular Hemoglobin 32 pg High 27-31 Mean Corpuscular HGB Conc 35 g/dL 31-36 Red Cell Distribution Width 14 % 10.5-15 Platelet Count 220 10^3/uL 150-450 Mean Platelet Volume 8 um3 7.4-10.4 Abs Neutrophils 8.4 10^3/uL High 1.5-7.7 Abs Lymphocytes 1.4 10^3/uL 1.0-4.8 Abs Monocytes 0.4 10^3/uL 0-0.8 Abs Eosinophils 0 10^3/uL 0-0.6 Abs Basophils 0 10^3/uL 0-0.2 Abs Nucleated RBC 0.02 10^3/uL Granulocyte % 81.5 % 38-83 Lymphocyte % 13.4 % Low 25-47 Monocyte % 4.3 % 1-9 Eosinophil % 0.4 % 0-6 Basophil % 0.4 % 0-2 Nucleated Red Blood Cells % 0.1 Laboratory test finding 03/20/2017 Urine Culture And SEE RESULT BELOW 3 Sensitivities Urinalysis Profile 03/20/2017 Urine Color Yellow Urine Appearance Cloudy Urine Specific [place] 1.005 Low 1.010-1.030 Urine pH 7.0 5-9 Urine Urobilinogen Negative Negative Urine Ketones Negative Negative Urine Protein Negative Negative Urine Leukocytes 1+ Negative Urine Blood Negative Negative Urine Nitrite Negative Negative Urine Bilirubin Negative Negative Urine Glucose Negative Negative Urine White Blood Cell 1+(6-10/hpf) Absent Urine Red Blood Cell Trace(0-2/hpf) Absent Urine Bacteria 1+ Absent Urine Squamous Epithelial Cell Present Absent Laboratory test finding 03/20/2017 Lactic Acid 1.2 mmol/L 0.5-2.0 4 CBC Auto Diff 02/05/2017 White Blood Count 9.3 10^3/uL 3.5-10.8 Red Blood Count 3.63 10^6/uL Low 4.0-5.4 Hemoglobin 11.4 g/dL Low 12.0-16.0 Hematocrit 32 % Low 35-47 Mean Corpuscular Volume 88 fL 80-97 Mean Corpuscular Hemoglobin 32 pg High 27-31 Mean Corpuscular HGB Conc 36 g/dL 31-36 Red Cell Distribution Width 14 % 10.5-15 Platelet Count 213 10^3/uL 150-450 Mean Platelet Volume 8 um3 7.4-10.4 Abs Neutrophils 7.5 10^3/uL 1.5-7.7 Abs Lymphocytes 1.4 10^3/uL 1.0-4.8 Abs Monocytes 0.4 10^3/uL 0-0.8 Abs Eosinophils 0 10^3/uL 0-0.6 Abs Basophils 0 10^3/uL 0-0.2 Abs Nucleated RBC 0 10^3/uL Granulocyte % 80.3 % 38-83 Lymphocyte % 14.8 % Low 25-47 Monocyte % 4.3 % 1-9 Eosinophil % 0.3 % 0-6 Basophil % 0.3 % 0-2 Nucleated Red Blood Cells % 0 Laboratory test finding 02/05/2017 Fetalscreen Negative Negative Hemoglobin Stain Negative 5 Poc Urinalysis 01/07/2017 Poc Glucose, Urine Negative Negative Poc Bilirubin, Urine Negative Negative Poc Ketone, Urine Negative Negative Poc Specific [place], Urine 1.020 1.010-1.030 Poc Blood, Urine Negative Negative Poc pH, Urine 6.0 5-9 Poc Protein, Urine Negative Negative Poc Urobilinogen, Urine 0.2 Negative Poc Nitrite, Urine Negative Negative Poc Leukocytes, Urine Negative Negative Poc Color, Urine Yellow Poc Clarity, Urine Clear 6 Laboratory test finding 10/26/2016 , Serum positive Urine Culture Routine 01/06/2016 Urine Culture, Routine Final report 7 , 8 Result 1 No growth 7, 9 Ua - Micro (a) 01/06/2016 Appearance NO DIP DONE Color CHROMENGENIC Glucose, Urine (Fma/CMC/CTX) INTERFERENCE Urine Culture Routine 09/23/2015 Urine Culture, Routine Final report 10 , 11 Result 1 No growth 10, 12 Ua - Micro (a) 09/23/2015 Appearance YELLOW Color CLEAR Glucose, Urine (Fma/CMC/CTX) NEG Bilirubin NEG Ketones NEG SP Grav 1.010 Blood NEG PH 7.0 Protein NEG Urobil 0.2 Nitrite NEG Leukocytes (Fma/CMC/Centrex) TRACE Hyaline - /Lpf Granular - /Lpf WBC (Fma,Centrex) 2-4 RBC - Mucus - /Lpf Epith OCC /Lpf Bacteria TR /Hpf Amorphous - /Lpf Crystals, Fluid (Fma/CMC/CTX) - Z#Comments - Ua - Micro (a) 09/20/2015 Appearance CLEAR Color YELLOW Glucose, Urine (Fma/CMC/CTX) NEG Bilirubin NEG Ketones NEG SP Grav 1.010 Blood MOD PH 7.0 Protein NEG Urobil 0.2 Nitrite NEG Leukocytes (Fma/CMC/Centrex) MOD Hyaline - /Lpf Granular - /Lpf WBC (Fma,Centrex) 20-30 RBC 3-5 Mucus RARE /Lpf Epith 2+ /Lpf Bacteria - /Hpf Amorphous - /Lpf Crystals, Fluid (Fma/CMC/CTX) - Z#Comments - Ua - Micro (Fma) 05/28/2015 Appearance clear Color yellow Glucose, Urine (Fma/CMC/CTX) neg Bilirubin neg Ketones neg SP Grav 1.015 Blood moderate PH 7.0 Protein neg Urobil 0.2 Nitrite positive Leukocytes (Fma/CMC/Centrex) large Hyaline - /Lpf Granular - /Lpf WBC (Fma,Centrex) >50 RBC 3-8 Mucus - /Lpf Epith occass /Lpf Bacteria 4+ /Hpf Amorphous - /Lpf Crystals, Fluid (Fma/CMC/CTX) - Z#Comments - Urine Culture Routine 05/28/2015 Urine Culture, Routine Final report 13 , 14 Result 1 Escherichia coli 13, 15 Antimicrobial Susceptibility See Comment: 13, 16 Laboratory test finding 02/13/2015 Hepatitis B Surface Ag Nonreactive Nonreactive Hepatitis B [place] AB 02/13/2015 Hepatitis B Surface AB Reactive Nonreactive Titer Hep B Surf AB Level 513.43 mIU/mL <12 17 Laboratory test finding 02/13/2015 Hepatitis C Antibody Nonreactive Nonreactive Serum Negative Negative HIV (1&2) Ab Rapid Nonreactive Nonreactive HIV 1/2 AB Evaluation 02/13/2015 HIV 1 2 Antibody Nonreactive Nonreactive 18 Laboratory test finding 11/23/2013 Glucose Whole Blood 62 Low 70-105 Culture Genital & 11/23/2013 Genital Culture (SEE NOTE) 19 Sensitivity Herpes Simplex Type 1&2 11/23/2013 Herpes Simplex Negative Negative Igg Virus I IgG AB Herpes Simplex Virus II IgG AB Negative Negative 20 Vaginitis Dna Affirm 11/16/2013 Screen Trichomonas Vaginalis Dna NEGATIVE Screen Gardnerella Vaginalis Dna NEGATIVE Screen Dia Species Dna NEGATIVE Laboratory test finding 05/19/2013 T4 8.2 g/mL 5.0-12.0 TSH (Thyroid Stimulating Horm) 1.03 miu/mL 0.34-5.60 Laboratory test 05/03/2013 Urine Negative Negative 21 finding Hepatitis Acute Panel 01/19/2012 Hep B Surface NON-REACTIVE Non-Reactive 22 Antigen Hep C Antibody NON-REACTIVE Non-Reactive 22 Hep C S/Co Ratio 0.0 0.0-0.7 22 Hep B Core Antibody Igm NON-REACTIVE Non-Reactive 22 Hep A Antibody Igm NON-REACTIVE Non-Reactive 22 Anti Viral AB Screen 01/19/2012 HIV 1/O/2 Abs-Index Value <1.00 <1.00 22 , 23 HIV 1/O/2 Abs, Qual Non Reactive 22, 24 Laboratory test 01/19/2012 Chlamydia Amplified NEGATIVETESTING <SEE 22 , 25 finding Probe NOTE> GC Amplified Probe NEGATIVETESTING <SEE NOTE> 22, 26 Laboratory test finding 12/09/2011 Thin Prep W/HPV(Lsil/DONNA/Asc) SEE NOTE 27 Vaginitis Dna Probe 12/09/2011 Screen Trichomonas Vaginalis Dna NEGATIVE 28 Screen Screen Gardnerella Vaginalis Dna NEGATIVE 28 Screen Dia Species Dna POSITIVE 28 Chlamydia/GC Aptima Endocerv/Vag 12/09/2011 Chlamydia/GC, Isis SEE BELOW 28 Source- Endocerv/Vag Swab * 28 Chlamydia Trachomatis,Isis Negative Negative 28, 29 Neisseria Gonorrhoeae,Isis Negative Negative 28, 30 Please Note: SEE BELOW 28, 31 Laboratory test finding 09/26/2011 Wet Prep (Fma,CMC,CX) see comment 32 Brandon Prep see comment 33 Vaginitis Dna Probe Screen 09/26/2011 Screen Trichomonas Vaginalis NEGATIVE Dna Screen Gardnerella Vaginalis Dna NEGATIVE Screen Dia Species Dna NEGATIVE Urine Culture Sensitivi 04/22/2011 Urine Culture Sensitivi NG 34, 35 Manual Differential 04/22/2011 Polysegmented Neutrophil 55 % 38-83 Lymphocyte 40 % 25-47 Monocyte 4 % 0-13 Eosinophil 1 % 0-6 Absolute Neutrophil Count 2.9 36 Anisocytosis SLIGHT CBC Auto Diff 04/22/2011 White Blood Count 5.4 CUMM 4.8-10.8 Red Cell Count 3.95 CUMM Low 4.2-5.4 Hemoglobin 12.5 g/dL 12.0-16.0 Hematocrit 35 % 35-47 Mean Corpuscular Volume 88 um3 79-97 Mean Corpuscular Hemoglob 32 pg High 27-31 Mean Corpuscular HGB Cone 36 g/dL 32-36 Redcell Distribution WDTH 12 % 10.5-15 Platelet Count (SEE NOTE) CUMM 150-450 37 Mean Platelet Volume (SEE NOTE) um3 7.4-10.4 38 Comments UWBC Comp Metabolic Panel 04/22/2011 Sodium 137 mmol/L 135-145 Potassium 3.9 mmol/L 3.5-5.0 Chloride 104 mmol/L 101-111 Co2 (Carbon Dioxide) 28.0 mmol/L 22-32 Anion Gap 5.0 mmol/L 2-11 39 Glucose 127 mg/dL High 70-100 BUN 8 mg/dL 6-24 Creatinine 0.8 mg/dL 0.50-1.40 One Over Creatinine 1.25 BUN/Creatinine Ratio 10.0 8-20 Calcium 9.5 mg/dL 8.1-9.9 Total Protein 6.4 GM/DL 6.2-8.1 Albumin 3.8 GM/DL 3.6-5.4 Globulin 2.6 GM/DL 2-4 Albumin/Globulin Ratio 1.5 1-3 Bilirubin Total 0.9 mg/dL 0.4-1.5 40 Alkaline Phosphatase 41 U/L 30-110 Alt (SGPT) 12 U/L Low 14-54 Ast (Sgot) 31 U/L 12-42 eGFR Non- 86.7 > 60 eGFR 111.5 > 60 41 Urinalysis 04/22/2011 Ua Color YELLOW Yellow Appearance-Urine CLEAR Clear Specific [place]-Ur 1.007 Low 1.010-1.030 Esterase-Urine NEGATIVE Negative Nitrite NEGATIVE Negative [id number] NEGATIVE Negative Protein-Urine NEGATIVE Negative PH-Urine 6.5 5-9 Blood-Urine NEGATIVE Negative Ketones-Urine NEGATIVE Negative Bilirubin-Ur NEGATIVE Negative Glucose-Urine NEGATIVE Negative Laboratory test finding 12/18/2010 Varicella Zoster V 1.60 index High 0.00 -0.90 42 AB,Igg Hepatic 10/03/2010 Albumin 5.0 g/dL 3.8-5.5 Alk. Phos. 55 U/L 30-110 Alt (SGPT) 10 U/L 7-35 Ast (Sgot) 24 U/L 5-34 Total Bilirubin 0.3 mg/dL 0.2-1.3 Total Protein 7.5 g/dL 6.3-8.1 Direct Bilirubin 0.1 mg/dL 0.0-0.6 Globulin 2.5 g/dL 2.0-4.8 A/G Ratio 2.0 Calc 0.6-2.2 Indirect Bilirubin 0.20 0.10-1.00 Laboratory test 09/12/2005 [facility] [place] [facility] Labs BMP;CBC;CBC See Image Report finding Laboratory test 06/30/2004 Thinprep W/HPV LGSIL SEE IMAGE finding (DONNA/ASCUS) Ua - Non Micro (a 06/30/2004 Appearance CLEAR New) Color LIGHT YELLOW Glucose NEGATIVE Bilirubin NEGATIVE Ketones TRACE SP Grav 1.025 Blood NEGATIVE PH 6.5 Protein NEGATIVE Urobil 0.2 Nitrite NEGATIVE Leukocytes NEGATIVE Comp Metabolic ([facility]) 12/15/2003 Glucose, Serum (a/CMC/CTX) 89 mg/dL 70- 118 BUN (a/CMC/Centrex) 10 mg/dL 6-26 Creatinine (a/CMC/CTX) 0.6 mg/dL 0.6-1.4 BUN/Creatinin Ratio 15.1 8.0-36 Sodium 142 134-149 Potassium 4.9 3.6-5.5 Chloride 100 mEq/L 94-112 Co2 25 21-32 Calcium (a/CMC/Centrex) 9.1 mg/dL 8.6-10.0 Total Protein 7.4 g/dL 6.3-8.1 Albumin ([facility]/CMCC/Centrex) 4.8 3.8-5.5 Globulin 2.6 2.0-4.8 A/G Ratio (a/CMC/Centrex) 1.9 0.6-2.2 Alkaline Phosphatase (F/C/CTX) 61 U/L 30-110 Alt (SGPT) 10 10-40 Ast (Sgot) (a/CMC/Centrex) 15 U/mL 5-34 Bilirubin, Total 0.6 mg/dL 0.2-1.3 Free T4/TSH 12/15/2003 TSH ([facility]rex) 2.32 uIU/ml 0.5-6.0 (a/[facility]/Centrex) Free T4 1.31 ng/dL 0.75-1.54 CBC Electronic ([facility]) 12/15/2003 WBC 9.4 3.6-9.6 Lymphocytes 16.4 % Low 20.5 - 51.1 Monocytes 5.0 % 1.7-9.3 Granulocytes 78.6 % High 42.2 - 75.2 Lymphocytes 1.5 10^3/uL 0.7 - 4.9 Monocytes 0.5 10^3/uL 0.1 - 0.9 Granulocytes 7.4 10^3/uL High 1.5 - 7.2 RBC 4.05 3.90-5.70 Hemoglobin (Fma/CMC/CTX) 12.7 g/dL 12.1 - 17.2 Hematocrit (Fma/CMC/CTX) 35.4 % Low 36.1 - 50.3 Mean Corpuscular Vol 87.4 82.2-97.4 Mean Corpuscular Hemaglobin 31.4 27.6-33.3 Mean Corpuscular Hemo Concen 35.9 High 33.0-35.5 RDW 11.9 11.6-13.7 Platelets 224. 10^3/ul 150-400 Mean Platelet Volume 7.3 Low 7.4-10.4 Ua - Non Micro (Fma New) 07/18/2002 Appearance CLEAR/YELLOW Glucose NEG Bilirubin NEG Ketones NEG SP Grav 1.015 Blood NEG PH 7.5 Protein NEG Urobil 0.2 Nitrite NEG Leukocytes TRACE Laboratory test 07/18/2002 Hematocrit (Fma/CMC/CTX) 41 % 36.1 - 50.3 finding Laboratory test 08/24/2000 Hematocrit 40 % 36.1 - 50.3 finding Ua - Non Micro (Fma 08/24/2000 Appearance CLEAR/YELLOW New) Glucose NEG Bilirubin NEG Ketones TRACE SP Grav 1.020 Blood NEG PH 7.0 Protein SSA + Urobil 0.2 Nitrite NEG Leukocytes TRACE 1 Critical Result LACT:3.2 Called to DIANA at: 10:08 by:[id number] Read back by:DIANA KSMariah Severe Sepsis and Septic Shock Management Bundle Measure requires all lactic acids initially measuring >2.0 mmol/L be repeated. 2 Because ethnic data is not always readily available, this report includes an eGFR for both -Americans and non- Americans. The National Kidney Disease Education Program (NKDEP) does not endorse the use of the MDRD equation for patients that are not between the ages of 18 and 70, are , have extremes of body size, muscle mass, or nutritional status, or are non- or non-. According to the National Kidney Foundation, irrespective of diagnosis, the stage of the disease is based on the level of kidney function: Stage Description GFR(mL/min/1.73 m(2)) 1 Kidney damage with normal or decreased GFR 90 2 Kidney damage with mild decrease in GFR 60-89 3 Moderate decrease in GFR 30-59 4 Severe decrease in GFR 15-29 5 Kidney failure <15 (or dialysis) 3 SEE RESULT BELOW Name: CYNTHIA MÁRQUEZ : [address]: Thony Jean-Baptiste MD Acct: [id number] Unit: [id number] AGE: 31 Location: ED Re03/20/17 SEX: F Status: DEP ER SPEC: [id number] SCOTTY: 03/20/[address]: Isaiah Blanton MD REQ: [id number] RECD: 03/20/17 STATUS: HUBERT GREEN DR: Stanislaw Kelley MD _ SOURCE: URINE SPDESC: ORDERED: Urine Culture Procedure Result Reported Site Urine Culture Final 03/22/17- 09 ML No growth of clinically significant organisms * ML - MAIN LAB (PSC1) . END OF REPORT * ML=Testing performed at Main Lab DEPARTMENT OF PATHOLOGY, [address] [place] [address] David Petit M.D. Director [facility] # [id number] 4 [facility] Severe Sepsis and Septic Shock Management Bundle Measure requires all lactic acids initially measuring >2.0 mmol/L be repeated. 5 Hemoglobin Interpretation: % Cells Volume of Maternal Hemorrhage 0.0 - 0.0045 Up to 15 ml 0.0046 - 0.0090 15 - 30 ml 0.0091 - 0.0135 30 - 45 ml 0.0136 - 0.0180 45 - 60 ml 0.0181 - 0.0225 60 - 75 ml 6 Creative Services Manager: [id number] SRC:URINE 1 VACUTAINER WIT H URINE 8 Source of Specimen: URINE 1 VACUTAINER WIT 9 Source of Specimen: URINE 1 VACUTAINER WIT 10 SRC: URINE YUBE 11 Source of Specimen: URINE 12 Source of Specimen: URINE 13 SRC:ucc 1 vacutainer with urine 14 Source of Specimen: ucc 1 vacutainer with 15 Escherichia coli Source of Specimen: ucc 1 vacutainer with Greater than 100,000 colony forming units per mL 16 Source of Specimen: ucc 1 vacutainer with S=Susceptible; I=Intermediate; R=Resistant P=Positive; N=Negative MICS are expressed in micrograms per mL Antibiotic RSLT#1 RSLT#2 RSLT#3 RSLT#4 Amoxicillin/Clavulanic Acid S Ampicillin S Cefepime S Ceftriaxone S Cefuroxime S Cephalothin S Ciprofloxacin S Ertapenem S Gentamicin S Imipenem S Levofloxacin S Nitrofurantoin S Piperacillin S Tetracycline S Tobramycin S Trimethoprim/Sulfa S 17 This assay does not differentiate between reactivity due to a vaccine-induced immune response or an immune response induced by infection with HBV. 18 It is recognized that currently available assays for the detection of antibodies to HIV-1 and/or HIV-2 may not detect all infected individuals. HIV antibodies may be undetectable in some stages of the infection and in some clinical conditions. The performance of this assay has not been established for populations of infants or children. Assayed by Chemiluminescence Microparticle Immunoassay on the Siemens Advia Centaur CP. Values obtained with different methods or kits cannot be used interchangeably.The diagnostic specificity of the ADVIA Centaur 1/O/2 Enhanced assay in the low risk population was 99.90% (6052/6058) with a 95% confidence interval of 99.78 to 99.96%. 19 RUN DATE: 11/25/13 [facility] LAB LIVE PAGE 1 RUN TIME: [address] [place] [address] Specimen Inquiry Name: CYNTHIA GARCIA : [address]: Mimi Montes De Oca [facility] Acct: [id number] Unit: [id number] AGE: 28 Location: [facility] Re11/23/13 SEX: F Status: REG REF SPEC: [id number] SCOTTY: 11/23/[address]: Mimi Montes De Oca [facility] REQ: [id number] RECD: 11/23/13 STATUS: COMP _ SOURCE: VAGINAL SPDESC: ORDERED: Genital Culture QUERIES: Medent Number [id number] Procedure Result Verified Site Genital Culture Final 11/25/13- 1005 ML Organism 1 NORMAL ROCCO Quantity 3+ END OF REPORT * ML=Testing performed at Main Lab DEPARTMENT OF PATHOLOGY, [address] [place] [address] David Petit M.D. Director [facility] # [id number] 20 Test Performed by: [address] [address] Home Care Consultant: Jose Luis Leroy III, M.D. 21 If is still suspected, please repeat test after 48 to 72 hours. This test detects intact HCG only and is indicated for the early detection of . 22 2 SST; 1 SWAB 23 Index Value: Specimen reactivity relative to the negative cutoff. 24 Negative: Non-reactive by ICMA Positive: Repeatedly reactive by ICMA. Refer to Western Blot confirmatory test for final interpretation. . Physician should field counsel the patient about result significance. Patient information should be kept strictly confidential. 25 NEGATIVE TESTING SITE: [place] [address] 26 NEGATIVE TESTING SITE: [place] [address] 27 [employer], [employer]. DEPARTMENT OF PATHOLOGY or Extension 1383 LAUNDRY TECHNICIAN CYTOLOGY REPORT PATIENT: CYNTHIA GARCIA : 1985 AGE: 26 Y SEX: F ACCT: [id number] PROCEDURE DATE: 12/09/2011 DATE RECEIVED: 12/11/2011 REQUESTING PHYSICIAN: ABY BRAXTON NP LOCATION: [facility] Case No. [id number] PATIENT DATA: [id number] SPECIMEN SUBMITTED: * * (HPVII) THIN PREP W/HPV (LSIL/ASC/DONNA) * * ENDOCERVICAL RELEVANT HISTORY: LMP: 11/23/2011 Contraceptive: NONE Prev.normal: 06/24 SPECIMEN ADEQUACY SATISFACTORY FOR EVALUATION, ENDOCERVICAL TRANSFORMATION ZONE COMPONENT PRESENT GENERAL CATEGORIZATION NEGATIVE FOR INTRAEPITHELIAL LESIONS OR MALIGNANCY INTERPRETATION/ RESULT FUNGAL ORGANISMS MORPHOLOGICALLY CONSISTENT WITH DIA SPECIES. COMMENTS Thin Prep Pap tests are examined with an FDA approved location-guidance system. ADDITIONAL COPIES SENT TO: Screened/Rescreened Electronically Signed Sign Out Date/Time: by: by: OPAL GUZMAN(ASCP) 12/14/2011 07:50 Note: The Pap smear is a screening test designed to aid in the detection of premalignant and malignant conditions of the uterine cervix. It is not a diagnostic procedure and should not be used as the sole means of detecting cervical cancer. Both false-positive and false-negative reports do occur. 00 UA Pap Smear performed at [facility] Dir: Ariel [place] MD, [address] [facility] [address] 01 pot liner [facility] [place] Dir: Hugh Matta MD, [address] [facility] [address] 02 [facility] [place] Dir: Toby Solano MD, [address] [facility] [address] For inquiries regarding HPV test results, the physician may contact Lab [facility]: [phone] "" 28 1 affirm and 1 aptima culturette. 29 -[facility] [place] [address] [facility] [id number] 30 -[facility] [address] [id number] 31 Acceptable specimens for this test are male urethral swab, endocervical swab and liquid based pap specimens, vaginal swabs in APTIMA transports and first void urine. See online Directory of Services for test number for rectal and pharyngeal specimens. -[facility] [address] [id number] 32 wet prep--epis, wbc's brandon --+hyphae 33 wet prep--epis, wbc's brandon --+hyphae 34 SPECIMEN DESCRIPTION: URINE, CLEAN CATCH 35 FINAL: NO GROWTH DAY 2 (<1,000 CFU/mL) 36 04/22/11 0220: ABS NEUTROPHIL previously reported as: 0 *P ESTIMATE 37 PLATELETS CLUMPED. UNABLE TO PERFORM ACCURATE COUNT. 38 PLATELETS CLUMPED. UNABLE TO PERFORM ACCURATE COUNT. 39 Anion gap measurement may be of limited value in the presence of any alkalosis, especially in a combined acid base disorder. . 40 A metabolite of Naproxen, O-desmethylnaproxen, has been shown to interfere with the Jendrassik-Cleo method for measuring total bilirubin. Samples from patients who have taken Naproxen have shown spurious elevation in total bilirubin levels. 41 Because ethnic data is not always readily available, this report includes an eGFR for both -Americans and non- Americans. The National Kidney Disease Education Program (NKDEP) does not endorse the use of the MDRD equation for patients that are not between the ages of 18 and 70, are , have extremes of body size, muscle mass, or nutritional status, or are non- or non-. According to the National Kidney Foundation, irrespective of diagnosis, the stage of the disease is based on the level of kidney function: Stage Description GFR(mL/min/1.73 m(2)) 1 Kidney damage with normal or decreased GFR 90 2 Kidney damage with mild decrease in GFR 60-89 3 Moderate decrease in GFR 30-59 4 Severe decrease in GFR 15-29 5 Kidney failure <15 (or dialysis) 42 Negative <0.91 Equivocal 0.91 - 1.09 Positive >1.09 Procedures Date CPT Code Description Status 04/22/2018 39271 Vision Test- screening test of visual acuity, Completed quantitative, bila Encounters Type Date Location Provider CPT E/M Dx Office Visit 03/15/2017 2:00p [facility] Office Aby Braxton, 07676 H81.10 Afsri-C Office Visit 10/26/2016 1:45p [facility] SHERRELL Quiroz 84161 N92.6 Z33.1 Office Visit 10/09/2016 3:00p [facility] SHERRELL Quiroz 63477 R11.10 R11.0 K21.0 Office Visit 03/16/2016 1:00p [facility] Office Aby Braxton, 47297 M25.571 Afsri-C Office Visit 01/06/2016 2:00p [facility] [place] [address] N39.0 Office Visit 09/23/2015 9:45a [place] [address] N39.0 Office Visit 09/20/2015 10:45a [facility] SHERRELL Quiroz 07323 N39.0 Office Visit 05/28/2015 2:45p Main Office Kt Dubon-C 67691 N39.0 Office Visit 05/30/2014 10:45a [facility] SHERRELL Quiroz 53929 372.39 Office Visit 12/08/2013 8:30a Main Office Mimi Montes De Oca, REAL ESTATE CLERK 74494 V25.01 Office Visit 11/23/2013 4:00p Main Office Mimi Montes De Oca, REAL ESTATE CLERK 59883 616.10 Office Visit 11/16/2013 3:45p Main Office Mimi Montes De Oca, SRI [address]1131 616.10 Office Visit 07/08/2013 9:45a Main Office Ashlee Ross, [facility] 34221 112.1 Office Visit 01/24/2013 11:30a [facility] Aby Braxton, 61368 478.29 Afnp-C Office Visit 01/19/2012 10:45a [facility] Aby Braxton, 15791 V74.5 Afnp-C V73.89 Office Visit 01/13/2012 4:20p [facility] Lula Sidhu, 17455 752.49 Thelma V74.5 Office Visit 12/25/2011 4:00p Main Office Stanislaw Kelley M.D. 57789 V74.1 Office Visit 12/23/2011 3:45p Main Office Aby Braxton, Afnp-C 38722 V74.1 Office Visit 12/09/2011 6:00p Main Office Aby Braxton Afnp-C 07684 616.11 V74.5 V76.2 Office Visit 10/29/2011 9:45a [facility] Ashlee Ross, [facility] 54712 466.0 Office Visit 09/26/2011 10:00a Main Office Aby Braxton, Afnp-C 92357 112.1 Office Visit 02/10/2011 11:20a Main Office Mimi Wild M.D. 83392 780.8 300.00 Office Visit 01/14/2011 8:10p Main Office Vargas Ansari M.D. 08623 681.02 Office Visit 12/27/2010 11:00a Main Office Stanislaw Kelley M.D. 06599 V74.1 Office Visit 12/20/2010 11:30a Main Office Stanislaw Kelley M.D. 43031 V74.1 Office Visit 12/18/2010 10:30a Main Office Betsy Re Afnp-C 91546 V70.5 V06.5 V05.8 V74.1 Office Visit 10/03/2010 11:20a [facility] Mimi Wild M.D. 53888 300.00 110.1 Office Visit 04/03/2010 11:15a Main Office Betsy Grimaldo Kt-C 93057 681.02 Office Visit 12/13/2009 2:00p [facility] Betsy GrimaldoKt-C 25664 616.10 Office Visit 04/01/2009 7:00p Main Office Ashlee PadronSHERRELL sorensen 92289 786.2 Office Visit 03/25/2009 9:20a Main Office Jonathan Alicea M.D. 46196 381.4 462 465.9 Office Visit 08/24/2007 10:00a [facility] Betsy GrimaldoKt-C 31016 616.10 Office Visit 06/30/2004 7:30p Main Office SHERRELL Floyd 07965 V72.31 Office Visit 12/15/2003 12:15p Main Office Ashleejesus PadronVandanaSHERRELL sorensen 08828 787.91 780.79 Office Visit 05/22/2003 2:30p [facility] Aby RejiKt ramos-Radha 54282 490 Office Visit 07/18/2002 2:40p Main Office Stanislaw Kelley M.D. 38384 V20.2 Office Visit 12/20/2001 2:30p [facility] Aby RejiKt ramos-Radha 80702 Office Visit 10/04/2001 3:00p [facility] Aby RejiKt ramos-C 70042 Office Visit 07/25/2001 1:10p Main Office David Maharaj M.D. 80069 Office Visit 03/21/2001 9:00a Main Office SHERRELL Floyd 49256 Office Visit 08/24/2000 3:30p Main Office Kt Eugene-Radha 64323 Office Visit 07/14/2000 3:10p [facility] Jerzy Rodriguez M.D. 21659 Office Visit 07/01/2000 3:00p Main Office Jerzy Rodriguez M.D. 26616 Plan of Care 04/22/2018 - Essence De Guzman, FNPF41.9 Anxiety disorder, ygxezycgcvkZ50.8 Other symbolic wjmqsvbxsxniC43.1 Dysthymic rcyyaugpH21.0 Hypoactive sexual desire flfmpfksB04.3 Family history of wgdxzyX90.9 Encounter for screening, iftypggxcouI67.8 Other visual aggmloyjkfvbC10.10 Myalgia, unspecified siteM25.562 Pain in left kneeM25.561 Pain in right kneeM25.541 Pain in joints of right handM25.542 Pain in joints of left handZ00.00 Encntr for general adult medical exam w/o abnormal findingsAllComments:~B_~U_Medication Management~b_~u_ Patient Understands medications he 's taking? Yes No Are there Barriers to Adherence? Yes No Has the patient been asked about herbal supplements and therapies, and OTC meds? Yes No As always, we strongly encourage a healthy diet and making physical activity a part of your every day life. If you have questions about how or where to start,please contact the office.
[2018-04-26 12:55] VITALS: BP 118/78
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
== END 2018-04-26 14:50 | disposition home or self-care (01) ==
LOC: UCEAST 12:33
DX: S13.4XXA Sprain of ligaments of cervical spine, initial encounter (principal); S43.402A Unspecified sprain of left shoulder joint, initial encounter; S93.401A Sprain of unspecified ligament of right ankle, initial encounter; S80.02XA Contusion of left knee, initial encounter; V43.52XA Car driver injured in collision with other type car in traffic accident, initial encounter; Y92.410 Unspecified street and highway as the place of occurrence of the external cause
CPT/HCPCS: 70450; 71046; 72125; 84702; 99213; G0463

== ENCOUNTER 2018-05-31 12:12 | Emergency (ER) | payer BC, OTHER ==
[2018-05-31 12:22] VITALS: BP 123/78
--- NOTE | 2018-05-31 13:18 | UC ---
Abdominal Pain Female HPI - HPI Summary HPI Summary: SUDDEN ONSET OF WHAT SHE THOUGHT WAS RECTAL PAIN AROUND 745 THIS MORNING. TRIED TO USE THE BATHROOM UNSUCCESSFULLY. SHE DID PASS SOME GAS BUT THE PAIN DID NOT IMPROVE. SHORTLY THEREAFTER SHE DEVELOPED LOWER ABDOMINAL/PELVIC PAIN WHICH IS GETTING WORSE. SHE HAD SOME NAUSEA INITIALLY WHICH SEEMS TO HAVE IMPROVED. NO FEVER. LMP 2 WEEKS AGO WAS NORMAL. - History of Current Complaint Chief Complaint: UCAbdominalPain Stated Complaint: ABDOMINAL COMPLAINT Time Seen by Provider: 05/31/18 13:00 Hx Obtained From: Patient Hx Last Menstrual Period: 04/18/18 Onset/Duration: Sudden Onset, Lasting Hours, Still Present Timing: Constant Severity Initially: Moderate Severity Currently: Moderate Pain Intensity: 1 Pain Scale Used: 0-10 Numeric Location: Discrete At: RLQ, Suprapubic Radiates: No Character: Sharp Aggravating Factor(s): Movement Alleviating Factor(s): Position Associated Signs and Symptoms: Positive: Nausea. Negative: Diaphoresis, Fever, Back Pain, Constipation, Blood in Stool, Urinary Symptoms Allergies/Adverse Reactions: Allergies Allergy/AdvReac Type Severity Reaction Status Date / Time No Known Allergies Allergy Verified 05/31/18 12:21 Home Medications: Home Medications Norgestimate-Ethinyl Estradiol [Atv-Wk-Spqyld Tablet] 1 tab PO 05/31/18 [History ] Sertraline HCl [Zoloft] 12.5 mg PO 05/31/18 [History] PMH/Surg Hx/FS Hx/Imm Hx Previously Healthy: Yes - Surgical History Surgical History: Yes Surgery Procedure, Year, and Place: Jun ;. TONSILLECTOMY 2012 ;. WISDOM TEETH REMOVED ; - Family History Known Family History: Positive: None Negative: Cardiac Disease, Diabetes, Other - neg: strokes, DVT Family History: denies cardio, respiratory vascular issues in family lineage - Social History Alcohol Use: Occasionally Alcohol Amount: glass of wine Substance Use Type: None Smoking Status (MU): Never Smoked Tobacco - Immunization History Most Recent Influenza Vaccination: 02/12/15 Most Recent Tetanus Shot: <5 years Review of Systems All Other Systems Reviewed And Are Negative: Yes Constitutional: Positive: Negative Respiratory: Positive: Negative Cardiovascular: Positive: Negative Gastrointestinal: Positive: Abdominal Pain, Nausea Genitourinary: Positive: Negative Physical Exam Triage Information Reviewed: Yes Appearance: Well-Appearing, No Pain Distress, Well-Nourished Vital Signs: Initial Vital Signs Temp 97.2 F 05/31/18 12:17 Pulse 102 05/31/18 12:17 Resp 18 05/31/18 12:17 BP 123/78 05/31/18 12:17 Pulse Ox 99 05/31/18 12:17 Laboratory Tests 05/31/18 05/31/18 13:01 13:02 POC Urine Color Light yellow POC Urine Clarity Slightly cloudy POC Urine pH 6.0 POC Ur Specif [place] 1.015 POC Urine Protein Negative POC Ur Glucose (UA) Negative POC Urine Ketones Negative POC Urine Blood Negative POC Urine Nitrite Negative POC Urine Bilirubin Negative POC Urine Urobilinogen 0.2 POC U Leukocyte Esteras Negative POC Ur Test Negative Vital Signs Reviewed: Yes Eyes: Positive: Conjunctiva Clear ENT: Positive: Hearing grossly normal Neck: Positive: Supple Respiratory Exam: Normal Cardiovascular: Positive: Tachycardia Abdomen Description: Positive: Soft, Other: - SUPRAPUBIC AND RLQ TTP. POSITIVE REBOUND. NO RIGIDITY. NEG OBTURATOR. NEG PSOAS SIGN. Negative: Distended, Guarding Bowel Sounds: Positive: Present Musculoskeletal: Positive: No Edema Neurological: Positive: Alert Psychological: Positive: Age Appropriate Behavior Skin: Negative: Rashes Abd Pain Female Course/Dx - Course Course Of Treatment: CONCERN FOR ACUTE APPENDICITIS. PT OFFERED TRANSPORT TO THE ED BY AMBULANCE BUT DECLINES. ADVISED THAT BY NOT TRAVELING IN A MONITORED SETTING SHE COULD BE RISKING WORSENING OF HER CONDITION THAT COULD POSE A THREAT TO HER LIFE, HEALTH AND MEDICAL SAFETY. SHE VERBALIZES UNDERSTANDING AND CONTINUES TO DECLINE AMBULANCE TRANSFER. - Differential Dx/Diagnosis Provider Diagnosis: RLQ abdominal pain Discharge - Sign-Out/Discharge Documenting (check all that apply): Patient Departure All imaging exams completed and their final reports reviewed: No Studies - Discharge Plan Condition: Stable Disposition: TRANS [facility] Patient Education Materials: Abdominal Pain (ED) Referrals: Stanislaw Kelley MD [Primary Care Provider] - If Needed Additional Instructions: I'M CONCERNED THAT YOU MAY HAVE AN ACUTE APPENDICITIS. GO DIRECTLY TO THE ED FROM HERE FOR FURTHER EVALUATION. YOU HAVE DECLINED TRANSFER TO THE ED BY AMBULANCE. BE ADVISED THAT BY NOT TRAVELING IN A MONITORED SETTING YOU COULD BE RISKING WORSENING OF YOUR CONDITION THAT COULD POSE A THREAT TO YOUR LIFE, HEALTH AND MEDICAL SAFETY. DO NOT EAT OR DRINK ANYTHING UNTIL SEEN BY ED PROVIDER. - Billing Disposition and Condition Condition: STABLE Disposition: Trans Higher Lvl of Care Fac
== END 2018-05-31 13:28 | disposition short-term general hospital (02) ==
LOC: UCEAST 12:12
DX: R10.31 Right lower quadrant pain (principal); K62.89 Other specified diseases of anus and rectum
CPT/HCPCS: 81003; 84702; 99212; G0463

== ENCOUNTER 2018-05-31 13:43 | Emergency (ER) | payer BC ==
[2018-05-31] MEDS ORDERED: NS 0.9% 1000 ML* 1,000 ML IV ONE (16:02)
[2018-05-31 16:19] LABS: ABS Basophils 0 10^3/ul (0-0.2); ABS Eosinophils 0 10^3/ul (0-0.6); ABS Lymphocytes 1.8 10^3/ul (1.0-4.8); ABS Monocytes 0.4 10^3/ul (0-0.8); ABS Neutrophils 4.8 10^3/ul (1.5-7.7); ABS Nucleated RBC 0 10^3/ul; Eosinophil % 0.6 %; Hematocrit 42 % (35-47); Hemoglobin 14.2 g/dl (12.0-16.0); Lymphocyte % 25.6 %; Mean Corpuscular HGB Conc 34 g/dl (31-36); Mean Corpuscular Hemoglobin 30 pg (27-31); Mean Corpuscular Volume 89 fL (80-97); Mean Platelet Volume 8.4 fL (7.4-10.4); Nucleated Red Blood Cells % 0; Platelet Count 228 10^3/ul (150-450); Red Blood Count 4.68 10^6/ul (4.00-5.40); Red Cell Distribution Width 13 % (10.5-15); White Blood Count 7.1 10^3/ul (3.5-10.8)
--- NOTE | 2018-05-31 16:33 | ED ---
Abdominal Pain/Female - HPI Summary HPI Summary: Patient is a 32 y/o F presenting to ED with complaints of sharp abdominal pain at RLQ/suprapubic area suddenly onsetting this morning at around 0740. She states that she went to urinate at around 0740 today, afterwards pain onset. She was concerned that pain was gas-related as she has had several episodes of painful gas over the past few months. However, pain persisted after passing gas. Patient notes that pain had moved from suprapubic to RLQ area. She denies vaginal discharge, pruritis, and odor. Fever, vomiting is denied but patient endorses nausea. Patient was seen at [facility], sent to ED to rule out appendicitis. In the room, patient states that pain has resolved except when touched. PSHx of caesarean section. test was done at , patient is not . Patient is on control and it has been +14 days since last menstrual cycle. She gave in June, patient has been having periods since three months ago. Patient is on Zoloft 25 mg. FMHx of diverticulitis. On triage, pain was rated 1/10. Pain is worse with movement, palpation. Sx. Home medications and allergies are reviewed. - History of Current Complaint Chief Complaint: EDAbdPain Stated Complaint: ABD PAIN Time Seen by Provider: 05/31/18 16:00 Hx Obtained From: Patient Hx Last Menstrual Period: 04/18/18 Onset/Duration: Sudden Onset, Lasting Hours - onset ~0740, Still Present Timing: Hours - onset ~0740 Severity Initially: Mild Severity Currently: None Pain Intensity: 0 Pain Scale Used: 0-10 Numeric - 0/10 Location: Discrete At: RLQ, Suprapubic Character: Sharp Aggravating Factor(s): Movement, Other: - PALPATION Alleviating Factor(s): Nothing Associated Signs and Symptoms: Positive: Nausea, Other: - no vaginal odor or pruritis. Negative: Fever, Vaginal Discharge, Vomiting Allergies/Adverse Reactions: Allergies Allergy/AdvReac Type Severity Reaction Status Date / Time No Known Allergies Allergy Verified 05/31/18 13:59 PMH/Surg Hx/FS Hx/Imm Hx Previously Healthy: Yes Endocrine/Hematology History: Denies: Hx Diabetes, Hx Thyroid Disease Cardiovascular History: Denies: Hx Hypertension, Hx Pacemaker/ICD Respiratory History: Denies: Hx Asthma, Hx Chronic Obstructive Pulmonary Disease (COPD) GI History: Denies: Hx Ulcer History: Reports: Other Problems/Disorders - UTI IN PAST NONE RECENTLY Denies: Hx Renal Disease Sensory History: Denies: Hx Contacts or Glasses, Hx Hearing Aid Opthamlomology History: Denies: Hx Contacts or Glasses Neurological History: Reports: Other Neuro Impairments/Disorders - vertigo Psychiatric History: Reports: Hx Panic Disorder - ANXIETY HISTORY - Surgical History Surgery Procedure, Year, and Place: Jun ;. TONSILLECTOMY 2012 ;. WISDOM TEETH REMOVED ; Hx Anesthesia Reactions: No Infectious Disease History: No Infectious Disease History: Denies: Hx Clostridium Difficile, Hx Hepatitis, Hx Human Immunodeficiency Virus (HIV), Hx of Known/Suspected MRSA, Hx Shingles, Hx Tuberculosis, Hx Known/ Suspected VRE, Hx Known/Suspected VRSA, History Other Infectious Disease, Traveled Outside the [place] in Last 30 Days - Family History Known Family History: Positive: Non-Contributory Negative: Cardiac Disease, Diabetes, Other - neg: strokes, DVT Family History: denies cardio, respiratory vascular issues in family lineage - Social History Alcohol Use: Occasionally Alcohol Amount: glass of wine Hx Substance Use: No Substance Use Type: Reports: None Hx Tobacco Use: No Smoking Status (MU): Never Smoked Tobacco Review of Systems Negative: Fever Positive: Abdominal Pain, Nausea. Negative: Vomiting Positive: other - NEGATIVE - VAGINAL ODOR AND PRURITUS . Negative: discharge All Other Systems Reviewed And Are Negative: Yes Physical Exam - Summary Physical Exam Summary: Vital Signs Reviewed: Yes A+Ox3, no distress Eyes: Conjunctiva Clear, MARIELLE. EOM intact and full ENT: Hearing grossly normal TM x 2 clear, mmoist, uvula midline, no exudate, no erythema Neck: Positive: Supple Respiratory: Positive: No respiratory distress, No accessory muscle use + CTA throughout no w/r Cardiovascular: RRR nl s1, s2 no m/r CBT <2 sec abd soft + BS + TTP RLQ with deep palp. no guarding no rebound No CVA Musculoskeletal Exam: GRAMAJO x 4 without difficulty Strength Intact, ROM Intact Neurological: Positive: Alert, + sensation throughout Psychological: Positive: Normal Response To Family Skin: Positive: no rash, no ecchymosis Triage Information Reviewed: Yes Vital Signs On Initial Exam: Initial Vitals Temp Pulse Resp BP Pulse Ox 97.9 F 99 16 123/79 100 12/18/18 13:56 05/31/18 13:56 05/31/18 13:56 05/31/18 13:56 05/31/18 13:56 Diagnostics - Vital Signs Vital Signs Temp Pulse Resp BP Pulse Ox 05/31/18 16:02 87 115/75 99 05/31/18 16:01 86 99 05/31/18 13:56 97.9 F 99 16 123/79 100 - Laboratory Lab Results: Lab Results 05/31/18 Range/Units 16:13 WBC 7.1 (3.5-10.8) 10^3/ul RBC 4.68 (4.00-5.40) 10^6/ul Hgb 14.2 (12.0-16.0) g/dl Hct 42 (35-47) % MCV 89 (80-97) fL MCH 30 (27-31) pg MCHC 34 (31-36) g/dl RDW 13 (10.5-15) % Plt Count 228 (150-450) 10^3/ul MPV 8.4 (7.4-10.4) fL Neut % (Auto) 67.2 % Lymph % (Auto) 25.6 % [place] % (Auto) 6.1 % Eos % (Auto) 0.6 % Baso % (Auto) 0.5 % Absolute Neuts (auto) 4.8 (1.5-7.7) 10^3/ul Absolute Lymphs (auto) 1.8 (1.0-4.8) 10^3/ul Absolute Monos (auto) 0.4 (0-0.8) 10^3/ul Absolute Eos (auto) 0 (0-0.6) 10^3/ul Absolute Basos (auto) 0 (0-0.2) 10^3/ul Absolute Nucleated RBC 0 10^3/ul Nucleated RBC % 0 Result Diagrams: 05/31/18 16:13 05/31/18 17:48 Lab Statement: Any lab studies that have been ordered have been reviewed, and results considered in the medical decision making process. - Ultrasound No standard instances Ultrasound Interpretation Completed By: Radiologist Summary of Ultrasound Findings: TRANSVAGINAL US IMPRESSION: According to the patient's age, imaging findings are most consistent with an. involuting/ hemorrhagic right ovarian follicle with subsequent free fluid in the pelvis. Please correlate to the patient's menstrual cycle. THIS REPORT WAS REVIEWED BY ED PHYSICIAN. Re-Evaluation - Re-Evaluation First Eval Re-Evaluation Time: 18:50 Comment: Results of US were discussed with patient. She does not have a fever, pain in improved, no nausea. D/w possibility of CT abd/pel were discussed. Afte discussion, will discharge pt home. Willf/u with JUICE SCALEMAN strict return precautinos discussed. Pt comfortable and in agreement with plan. Questions asked and answered Abdominal Pain Fem Course/Dx - Course Course Of Treatment: Patient presents emergency Department sent from urgent care. Patient states this morning she developed severe sharp right lower quadrant superpubic pain after urinating. Patient states she's had this in the past when she's had gas. Patient states she did have flatus without any improvement. Patient reports mild nausea but none present. No fevers no chills. Decreased appetite. At urgent care patient had a urinalysis her all which were normal and unremarkable. Differential includes diverticulitis, ovarian cyst, appendicitis. Patient is tender on exam and increased range of motion of the leg. Discussed with patient options. We'll check pelvic ultrasound. We'll do contrast with CT IV and oral. Patient aware may not find a clear diagnosis will identify non-concerning processes. Pt comfortable and in agreement with plan. Pt declined analgesia at present - Diagnoses Provider Diagnoses: Other ovarian cyst, right side Discharge - Sign-Out/Discharge Documenting (check all that apply): Patient Departure - discharge - Discharge Plan Condition: Stable Disposition: HOME Patient Education Materials: Ovarian Cyst (ED) Forms: *Work Release Referrals: Stanislaw Kelley MD [Primary Care Provider] - Additional Instructions: - Okay to alternate ibuprofen (Motrin, Advil) and tylenol every 3hours for pain. Take with food. Do NOT take for more than 4-5 days - Apply heat to your abdomen for discomfort - Contact your doctor to schedule a follow-up appointment. Contact your doctor or return with questions or concerns - if you develop increased pain, vomiting , fevers or any other concerns return to the emergency department - Billing Disposition and Condition Condition: STABLE Disposition: Home - Attestation Statements Document Initiated by Scribe: Yes Documenting Scribe: BRENT MORRIS Provider For Whom Scribe is Documenting (Include Credential): ELYSE RODRÍGUEZ MD Scribe Attestation: I, BRENT MORRIS , scribed for ELYSE RODRÍGUEZ MD on 06/01/18 at 1331. Scribe Documentation Reviewed: Yes Provider Attestation: The documentation as recorded by the scribeBRENT accurately reflects the service I personally performed and the decisions made by me, ELYSE RODRÍGUEZ MD Status of Scribe Document: Viewed
[2018-05-31 16:40] LABS: ALT 9 U/L (7-52); Albumin 4.5 g/dL (3.2-5.2); Albumin/Globulin Ratio 1.6 (1-3); Alkaline Phosphatase 61 U/L (34-104); BUN/Creatinine Ratio 12.1 (8-20); Blood Urea Nitrogen 7 mg/dL (6-24); CO2 Carbon Dioxide 22 mmol/L (22-32); Calcium 9.6 mg/dL (8.6-10.3); Chloride 106 mmol/L (101-111); EGFR Non-African American 119.7 (>60); Globulin 2.9 g/dL (2-4); Glucose 92 mg/dL (70-100); Sodium 138 mmol/L (135-145); Total Protein 7.4 g/dL (6.4-8.9)
[2018-05-31 17:13] LABS: Anion Gap 10 mmol/L (2-11)
[2018-05-31] MEDS ORDERED: Iohexol 300* (CONTRAST) 10 ML SDV IV ONE (18:31)
[2018-05-31 19:08] VITALS: BP 130/94
== END 2018-05-31 19:07 | disposition home or self-care (01) ==
LOC: ED 13:43
DX: N83.201 Unspecified ovarian cyst, right side (principal); R11.0 Nausea; R10.9 Unspecified abdominal pain
CPT/HCPCS: 36415; 76830; 80053; 83735; 85025; 99283

== ENCOUNTER 2018-07-16 13:55 | Emergency (ER) | payer BC ==
[2018-07-16 14:10] VITALS: BP 106/72
--- NOTE | 2018-07-16 14:47 | UC ---
Respiratory Complaint HPI - HPI Summary HPI Summary: 32 y/o female presents to the urgent care c/o sinus congestion w/ yellowish nasal discharge, VILLARREAL, productive cough for the past 3 days. Pt reports last night her cough produced a green sputum. Pain is mild 1/10. Pt has taking Dayquill PO to alleviate symptoms. Pt denies dizziness, body aches, SOB, wheezing, abdominal pain, N/V/D. Pt was sent home from work due to cough. - History of Current Complaint Chief Complaint: UCRespiratory Stated Complaint: CONGESTION Time Seen by Provider: 07/16/18 14:32 Hx Obtained From: Patient Hx Last Menstrual Period: current ?: No Onset/Duration: Gradual Onset, Lasting Days - 3 days, Still Present, Worse Since - today Timing: Intermittent Episodes Severity Initially: Mild Severity Currently: Mild Pain Intensity: 1 Pain Scale Used: 0-10 Numeric Character: Cough: Productive, Sputum Description: - green Aggravating Factors: Recumbent Position Alleviating Factors: OTC Meds Associated Signs And Symptoms: Positive: Chills, URI, Nasal Congestion. Negative: Wheezing - Risk Factors Pulmonary Embolism Risk Factors: Negative Cardiac Risk Factors: Negative Pseudomonas Risk Factors: Negative Tuberculosis Risk Factors: Negative - Allergies/Home Medications Allergies/Adverse Reactions: Allergies Allergy/AdvReac Type Severity Reaction Status Date / Time No Known Allergies Allergy Verified 07/16/18 14:10 Home Medications: Home Medications D-Methorphan/PE/Acetaminophen [Gnp Day Time Cold/Flu Rel] 1 liq PO DAILY PRN 08/02 [History Confirmed 07/16/18] PMH/Surg Hx/FS Hx/Imm Hx Previously Healthy: Yes Other Neurological History: Vertigo Psychological History: Anxiety - Surgical History Surgical History: Yes Surgery Procedure, Year, and Place: Jun ;. TONSILLECTOMY 2012 ;. WISDOM TEETH REMOVED ; - Family History Known Family History: Positive: None - Pt denies FMHX, Non-Contributory Negative: Cardiac Disease, Diabetes, Other - neg: strokes, DVT Family History: denies cardio, respiratory vascular issues in family lineage - Social History Occupation: Employed Full-time Lives: With Family Alcohol Use: Rare Alcohol Amount: glass of wine Substance Use Type: None Smoking Status (MU): Never Smoked Tobacco - Immunization History Most Recent Influenza Vaccination: 09/01/15 Most Recent Tetanus Shot: <5 years Review of Systems All Other Systems Reviewed And Are Negative: Yes Constitutional: Positive: Chills, Fatigue, Other - body aches Skin: Positive: Negative Eyes: Positive: Negative ENT: Positive: Nasal Discharge - yellowish, Sinus Congestion, Sinus Pain/ Tenderness, Other - hoarseness and yellowish PND Respiratory: Positive: Cough - producitve w/ green phlegm Cardiovascular: Positive: Negative Gastrointestinal: Positive: Negative Genitourinary: Positive: Negative Motor: Positive: Negative Neurovascular: Positive: Negative Musculoskeletal: Positive: Myalgia Neurological: Positive: Headache Psychological: Positive: Negative Is Patient Immunocompromised?: No Physical Exam - Summary Physical Exam Summary: VITAL SIGNS: Reviewed. GENERAL: Patient is a well developed and nourished female who is sitting comfortable in the examining table. Patient is not in any acute respiratory distress. HEAD AND FACE: No signs of trauma. No ecchymosis, hematomas or skull depressions. No sinus tenderness. EYES: PERRLA, EOMI x 2, No injected conjunctiva, no nystagmus. No photophobia. EARS: Hearing grossly intact. Ear canals and tympanic membranes are within normal limits. Nose: edematous and erythematous nasal mucosa w/ clear nasal discharge. MOUTH: Positive no erythema, no tonsillar enlargement. Uvula in midline. NECK: Supple, trachea is midline, Positive anterior cervical lymphadenopathy, no JVD, no carotid bruit, no c-spine tenderness, neck with full ROM. No meningeal signs, no Kernig's or brudzinskis signs. CHEST: Symmetric, no tenderness at palpation LUNGS: Clear to auscultation bilaterally. No wheezing or crackles. CVS: Regular rate and rhythm, S1 and S2 present, no murmurs or gallops appreciated. ABDOMEN: Soft, non-tender. No signs of distention. No rebound no guarding, and no masses palpated. Bowel sounds are normal. EXTREMITIES: FROM in all major joints, no edema, no cyanosis or clubbing. NEURO: Alert and oriented x 3. No acute neurological deficits. Speech is normal and follows commands. SKIN: Dry and warm Triage Information Reviewed: Yes Vital Signs: Initial Vital Signs Temp 98.8 F 07/16/18 14:06 Pulse 106 07/16/18 14:06 Resp 16 07/16/18 14:06 BP 106/72 07/16/18 14:06 Pulse Ox 98 07/16/18 14:06 Diagnostic Evaluation - Laboratory O2 Sat by Pulse Oximetry: 98 Respiratory Course/Dx - Course Course Of Treatment: 32 y/o female presents to the urgent care c/o sinus congestion w/ yellowish nasal discharge, VILLARREAL, productive cough for the past 3 days. Pt reports last night her cough produced a green sputum. Pain is mild 1/ 10. Pt has taking Dayquill PO to alleviate symptoms. Pt denies dizziness, body aches, SOB, wheezing, abdominal pain, N/V/D. Pt was sent home from work due to cough. Hx obtained. Pt w/ URI on examination. O2Sat:98%. Pt is hemodynamically stable. Rapid Influenza A&B: negative. Pt advised to take ibuprofen PO to alleviates symptoms. Advised on hand washing to avoid spreading. Pt advised to rest, eat well and avoid strenuous exercise. If symptoms do not improve or worsen advised to return to the urgent care or f/u with her PCP for further evaluation and treatment. Pt understood and agreed - Differential Dx/Diagnosis Differential Diagnosis/HQI/PQRI: Bronchitis, Influenza, Laryngitis, Lower Resp Infection, Sinusitis Provider Diagnosis: Upper respiratory infection Discharge - Sign-Out/Discharge Documenting (check all that apply): Patient Departure - D/C home All imaging exams completed and their final reports reviewed: No Studies - Discharge Plan Condition: Stable Disposition: HOME Patient Education Materials: Upper Respiratory Infection (ED) Forms: *Work Release Referrals: Stanislaw Kelley MD [Primary Care Provider] - 3 Days Additional Instructions: 1-Please take ibuprofen PO q6-8hrs prn as instructed after meals to alleviate pain and swelling. Increase fluid intake, eat well, rest and avoid strenuous exercise 2- Take Delsym PO or Robitussin PO to alleviate cough. 3- If symptoms do not improve or worsen please return to the urgent care or f/u with your PCP in 3 days for further evaluation and treatment. - Billing Disposition and Condition Condition: STABLE Disposition: Home
[2018-07-16 15:14] LABS: Influenza A Molecular NEGATIVE (Negative); Influenza B Molecular NEGATIVE (Negative)
== END 2018-07-16 15:31 | disposition home or self-care (01) ==
LOC: UCEAST 13:55
DX: J06.9 Acute upper respiratory infection, unspecified (principal)
CPT/HCPCS: 99211; G0463

== ENCOUNTER 2019-07-16 07:49 | Emergency (ER) | payer BC ==
[2019-07-16 08:00] VITALS: BP 116/69
--- NOTE | 2019-07-16 08:40 | UC ---
Complaint Female HPI - HPI Summary HPI Summary: ONSET LAST NIGHT OF DYSURIA, URINARY FREQUENCY, URGENCY AND CHILLS. DENIES FEVER, NAUSEA, BACK PAIN. PATIENT IS 29 WEEKS . DENIES CONTRACTIONS, VAGINAL BLEEDING, LOSS OF FLUID. BABY IS MOVING WELL. WAS RECENTLY TREATED FOR UTI WITH KEFLEX ON 06/22/2019. WAS TREATED PRIOR TO THAT FOR UTI ON 05/29/19 WITH MACROBID. - History Of Current Complaint Chief Complaint: UCGU Stated Complaint: URINARY ISSUES Time Seen by Provider: 07/16/19 07:52 Hx Obtained From: Patient Hx Last Menstrual Period: current Onset/Duration: Gradual Onset, Lasting Hours, Still Present Severity Initially: Moderate Severity Currently: Moderate Pain Intensity: 5 Pain Scale Used: 0-10 Numeric Character: Burning Aggravating Factor(s): Urination Alleviating Factor(s): Nothing Associated Signs And Symptoms: Negative: Fever, Back Pain, Vaginal Bleeding/ Discharge, Nausea - Allergies/Home Medications Allergies/Adverse Reactions: Allergies Allergy/AdvReac Type Severity Reaction Status Date / Time No Known Allergies Allergy Verified 07/16/19 08:00 Home Medications: Home Medications Acetaminophen [8 Hour Acetaminophen] 1 tab PO DAILY PRN 07/16/19 [History Confirmed 07/16/19] Cranberry 1 tab PO DAILY 07/16/19 [History Confirmed 07/16/19] [place] 3,6,9 Combination No.7 [[place] Dha] 1 tab PO DAILY 07/16/19 [History Confirmed 07/16/19] Vit37/Iron/Folic Acid [[place] Chewable Tablet] 1 tab PO DAILY [History Confirmed 07/16/19] PMH/Surg Hx/FS Hx/Imm Hx Previously Healthy: Yes - Surgical History Surgical History: Yes Surgery Procedure, Year, and Place: Jun ;. TONSILLECTOMY 2012 ;. WISDOM TEETH REMOVED ; - Family History Known Family History: Positive: None - Pt denies FMHX, Non-Contributory Negative: Cardiac Disease, Diabetes, Other - neg: strokes, DVT Family History: denies cardio, respiratory vascular issues in family lineage - Social History Alcohol Use: None Alcohol Amount: glass of wine Substance Use Type: None Smoking Status (MU): Never Smoked Tobacco - Immunization History Most Recent Influenza Vaccination: 02/12/15 Most Recent Tetanus Shot: <5 years Review of Systems All Other Systems Reviewed And Are Negative: Yes Constitutional: Positive: Negative Respiratory: Positive: Negative Cardiovascular: Positive: Negative Gastrointestinal: Positive: Negative Genitourinary: Positive: Dysuria, Frequency, Urgency Physical Exam Triage Information Reviewed: Yes Appearance: Well-Appearing, No Pain Distress, Well-Nourished Vital Signs: Initial Vital Signs Temp 97.9 F 07/16/19 07:56 Pulse 107 07/16/19 07:56 Resp 18 07/16/19 07:56 BP 116/69 07/16/19 07:56 Pulse Ox 99 07/16/19 07:56 Laboratory Tests 07/16/19 08:11 POC Urine Color Yellow POC Urine Clarity Cloudy POC Urine pH 7.0 POC Ur Specif Pyrites 1.015 POC Urine Protein 1+ A POC Ur Glucose (UA) Negative POC Urine Ketones Negative POC Urine Blood 3+ A POC Urine Nitrite Negative POC Urine Bilirubin Negative POC Urine Urobilinogen 0.2 POC U Leukocyte Esteras 3+ A Vital Signs Reviewed: Yes Eyes: Positive: Conjunctiva Clear ENT: Positive: Hearing grossly normal Neck: Positive: Supple Respiratory: Positive: No respiratory distress, No accessory muscle use Cardiovascular: Positive: Pulses Normal Abdomen Description: Positive: Soft - GRAVID, CVA Tenderness (L) - EQUIVOCAL. Negative: CVA Tenderness (R) Musculoskeletal: Positive: No Edema Neurological: Positive: Alert Psychological: Positive: Age Appropriate Behavior Skin: Negative: Rashes Complaint Female Dx - Course Course Of Treatment: URINE DIP SUGGESTIVE OF UTI. EARLIER THIS MONTH (06/22/2019) PATIENT GREW STAPH EPIDERMIDIS AND WAS TREATED WITH KEFLEX. PRIOR TO THAT WAS TREATED FOR UTI WITH MACROBID ON 05/29/19. THAT CULTURE HAD NO GROWTH. GIVEN HER RECURRENT SYMPTOMS TODAY WILL SEND URINE FOR UREAPLASMA/MYCOPLASMA TESTING. GIVEN SHE RECENTLY HAD KEFLEX AND SHE IS WILL COVER AGAIN WITH MACROBID. SHE HAD EQUIVOCAL LEFT-SIDED CVA TENDERNESS ON EXAM TODAY. PATIENT IS NOT RUNNING FEVER AND DENIES NAUSEA. NO PERSONAL OR FAMILY HISTORY OF KIDNEY STONES. ADVISED TO BE VIGILANT AND SEEK REEVALUATION IF THAT LEFT FLANK PAIN GETS WORSE. SHE HAS AN OB APPOINTMENT COMING UP THIS WEEK ON 07/21/2019. SHE WILL KEEP THIS APPOINTMENT. - Differential Dx/Diagnosis Provider Diagnosis: UTI (urinary tract infection) Discharge ED - Sign-Out/Discharge Documenting (check all that apply): Patient Departure All imaging exams completed and their final reports reviewed: No Studies - Discharge Plan Condition: Stable Disposition: HOME Prescriptions: Nitrofurantoin Macrocrystal [Nitrofurantoin] 100 mg PO BID #14 capsule Patient Education Materials: Urinary Tract Infection in Women (ED) Referrals: Stanislaw Kelley MD [Primary Care Provider] - If Needed Additional Instructions: URINE DIP SUGGESTIVE OF UTI. TAKE THE ANTIBIOTICS PRESCRIBED. SPECIMEN HAS BEEN SENT FOR CULTURE AND WE WILL CALL YOU IF YOUR MEDICATION NEEDS TO BE CHANGED. KEEP YOUR OB APPOINTMENT THIS WEEK. STAY WELL-HYDRATED. - Billing Disposition and Condition Condition: STABLE Disposition: Home
== END 2019-07-16 08:50 | disposition home or self-care (01) ==
LOC: UCEAST 07:49
DX: N39.0 Urinary tract infection, site not specified (principal)
CPT/HCPCS: 81003; 87077; 87086; 87186; 87798; 99212; G0463